=== PATIENT | female | born 1990 | race Caucasian/White ===

== ENCOUNTER → 2016-06-25 | Outpatient (CLI) | payer BC ==
[2016-06-25 13:45] LABS: ALBUMIN 2.7 GM/DL (3.2-5.2); ALBUMIN/GLOBULIN RATIO 0.82 (1.00-1.93); ALKALINE PHOSPHATASE 121 U/L (45-117); ALT/SGPT 18 U/L (12-78); ANION GAP 6 MEQ/L (8-16); AST/SGOT 11 U/L (15-37); BILIRUBIN,TOTAL 0.2 MG/DL (0.2-1.0); BLOOD UREA NITROGEN 10 MG/DL (7-18); CALCIUM LEVEL 8.3 MG/DL (8.5-10.1); CARBON DIOXIDE LEVEL 25 MEQ/L (21-32); CHLORIDE LEVEL 109 MEQ/L (98-107); CREATININE FOR GFR 0.71 MG/DL (0.55-1.02); FERRITIN 2 NG/ML (8-252); FREE T4 0.89 NG/DL (0.76-1.46); GLOMERULAR FILTRATION RATE > 60.0 (>60); GLUCOSE, FASTING 95 MG/DL (70-105); POTASSIUM SERUM 4.5 MEQ/L (3.5-5.1); SODIUM LEVEL 140 MEQ/L (136-145); TOTAL IRON BINDING CAPACITY 423 UG/DL (250-450)
[2016-06-25 13:46] LABS: BASO # 0.1 K/mm3 (0.0-0.2); BASO % 0.6 % (0.0-1.0); EOS % 10.9 % (0.0-3.0); LARGE UNSTAINED CELL # 0.1 K/mm3 (0.0-0.4); LARGE UNSTAINED CELL % 1.2 % (0.0-4.0); LYMPH # 1.5 K/mm3 (1.5-6.5); LYMPH % 16.2 % (24.0-44.0); MEAN CORPUSCULAR HEMOGLOBIN 21.7 pg (27.0-33.0); MEAN CORPUSCULAR VOLUME 70.2 fl (80.0-96.0); MONO # 0.5 K/mm3 (0.0-0.8); MONO % 5.1 % (0.0-5.0); NEUTROPHILS # 6.1 K/mm3 (1.8-7.7); PLATELET COUNT, AUTOMATED 377 k/mm3 (150-450); RED CELL DISTRIBUTION WIDTH 16.5 % (11.5-14.5); WHITE BLOOD COUNT 9.2 K/mm3 (4.0-10.0)
[2016-06-25 13:48] LABS: FOLATE 9.1 NG/ML; VITAMIN B12 LEVEL 393 PG/ML
[2016-06-25 14:05] LABS: ADD MORPHOLOGY? YES
[2016-06-25 14:13] LABS: ANISOCYTOSIS 1+; HYPOCHROMASIA 3+; MICROCYTOSIS 3+
[2016-06-25 14:47] LABS: ERYTHROCYTE SEDIMENTATION RATE 38 mm/hr (0-20)
== END ==
LOC: M SMT 08:11
PROVIDERS: ATTEND Family Medicine
DX: D50.9 Iron deficiency anemia, unspecified (principal); K50.80 Crohn's disease of both small and large intestine without complications; F33.1 Major depressive disorder, recurrent, moderate

== ENCOUNTER → 2016-06-25 | Outpatient (CLI) | payer BC ==
[2016-06-25 13:49] LABS: VITAMIN B12 LEVEL 391 PG/ML (247-911)
[2016-06-25 13:54] LABS: ALBUMIN 2.7 GM/DL (3.2-5.2); ANION GAP 7 MEQ/L (8-16); BLOOD UREA NITROGEN 10 MG/DL (7-18); CALCIUM LEVEL 8.2 MG/DL (8.5-10.1); CARBON DIOXIDE LEVEL 24 MEQ/L (21-32); CHLORIDE LEVEL 109 MEQ/L (98-107); CREATININE FOR GFR 0.73 MG/DL (0.55-1.02); FERRITIN 2 NG/ML (8-252); GLOMERULAR FILTRATION RATE > 60.0 (>60); GLUCOSE, FASTING 98 MG/DL (70-105); MAGNESIUM LEVEL 1.9 MG/DL (1.8-2.4); PERCENT SATURATION 4.9 % (13.2-37.4); PHOSPHORUS LEVEL 3.2 MG/DL (2.5-4.9); POTASSIUM SERUM 4.5 MEQ/L (3.5-5.1); SODIUM LEVEL 140 MEQ/L (136-145); TOTAL IRON BINDING CAPACITY 408 UG/DL (250-450)
== END ==
LOC: M SMT 08:14
PROVIDERS: ATTEND Internal Medicine Gastroenterology
DX: K50.80 Crohn's disease of both small and large intestine without complications (principal); K59.1 Functional diarrhea; D64.9 Anemia, unspecified; R14.1 Gas pain

== ENCOUNTER → 2016-07-15 | Outpatient (CLI) | payer BC ==
[2016-07-18 00:06] LABS: ENDOMYSIAL ABY IgA Negative (Negative); TISSUE TRANSGLUTAMINASE IgG <2 U/mL (0-5)
== END ==
LOC: M SMT 12:58
PROVIDERS: ATTEND Internal Medicine Gastroenterology
DX: R10.12 Left upper quadrant pain (principal); K21.9 Gastro-esophageal reflux disease without esophagitis; D64.9 Anemia, unspecified; K52.9 Noninfective gastroenteritis and colitis, unspecified

== ENCOUNTER → 2016-10-08 | Outpatient (CLI) | payer BC ==
[~2016-10-08] MED LIST: BCP; FLUO20CA8 PO; OMEP40CA2 PO; ROPI2TAB24 PO; TOPA50TA8 PO; VALI5TAB PO; VITA200038 PO; XYZA5TAB2 PO; [UNRECOGNIZED DRUG - CODE] XX
[2016-10-08 14:12] LABS: FOLLICLE STIMULATING HORMONE 4.5 mIU/mL; LUTEINIZING HORMONE 2.9 mIU/mL
[2016-10-08 14:24] LABS: ADD MANUAL DIFFER YES; MEAN CORPUSCULAR HEMOGLOBIN 22.2 pg (27.0-33.0); MEAN CORPUSCULAR HGB CONC 31.2 g/dl (32.0-36.5); PLATELET COUNT, AUTOMATED 336 k/mm3 (150-450); RED CELL DISTRIBUTION WIDTH 16.7 % (11.5-14.5)
[2016-10-08 14:48] LABS: PERCENT SATURATION 6.2 % (13.2-45.0)
[2016-10-08 14:51] LABS: BANDS 4 % (< 11); BASOPHILS 1 % (0-4); EOSINOPHILS 4 % (0-5)
[2016-10-08 14:52] LABS: ANISOCYTOSIS 2+; HYPOCHROMASIA 1+; MICROCYTOSIS 2+
== END ==
LOC: M SMT 10:21
PROVIDERS: ATTEND Family Medicine
DX: E55.9 Vitamin D deficiency, unspecified (principal); D50.9 Iron deficiency anemia, unspecified; R63.5 Abnormal weight gain

== ENCOUNTER 2016-10-15 18:23 | Emergency (ER) | payer OTHER, BC ==
[~2016-10-15] VITALS: Ht 170.2 cm; Wt 125.3 kg
[2016-10-15] MEDS ORDERED: FLUO20CA8 PO (18:35)
[2016-10-15] MEDS ORDERED: BCP (18:35)
[2016-10-15] MEDS ORDERED: [UNRECOGNIZED DRUG - CODE] XX (18:35)
[2016-10-15] MEDS ORDERED: TOPA50TA8 PO (18:35)
[2016-10-15] MEDS ORDERED: OMEP40CA2 PO (18:35)
[2016-10-15] MEDS ORDERED: XYZA5TAB2 PO (18:35)
[2016-10-15] MEDS ORDERED: ROPI2TAB24 PO (18:35)
[2016-10-15] MEDS ORDERED: VITA200038 PO (18:35)
[2016-10-15] MEDS ORDERED: ADACEL/BOOSTRIX VACCINE (DIPHTH/PERTUSS/ACELL/TETANUS)0.5ML SYR (90715) IM ONE (20:45)
--- NOTE | 2016-10-15 21:50 | REPUSA ---
HISTORY: Trauma. COMPARISON: No relevant comparison is available at the time of interpretation. CT C-SPINE with reformations: total DLP combined head and C-spine 1309.1 mGy*cm C1 through T1: Neural rings intact without fracture. Dens intact. Central canal: Patent without neural encroachment. Alignment (by reformations): No acute listhesis. IMPRESSION: Nontraumatic C-spine.
--- NOTE | 2016-10-15 21:50 | REPUSA ---
CLINICAL HISTORY: Head trauma COMPARISON: No study for comparison is available at the time of interpretation. TECHNIQUE: Head CT without contrast Brain: No intracranial hemorrhage or parenchymal edema. Calvarium: No depressed fractures. Sinuses (partially visualized): No hemorrhage fluid levels. IMPRESSION: No intracranial hemorrhage or fracture.
[2016-10-15] MEDS ORDERED: VALI5TAB PO (22:07)
[2016-10-15 22:14] VITALS: BP 138/80
--- NOTE | 2016-10-16 07:56 | REP ---
Left shoulder three views : There is no fracture or dislocation. Mineralization and joint spaces are normal. There are no calcifications or foreign bodies. Impression: Negative left shoulder . Signed by Brice Fajardo MD 10/16/2016 07:48 A
== END 2016-10-15 22:14 | disposition home or self-care (01) ==
LOC: M ED 18:23
DX: S13.4XXA Sprain of ligaments of cervical spine, initial encounter (principal); S40.012A Contusion of left shoulder, initial encounter; S06.0X0A Concussion without loss of consciousness, initial encounter; V53.5XXA Driver of pick-up truck or van injured in collision with car, pick-up truck or van in traffic accident, initial encounter; Y92.410 Unspecified street and highway as the place of occurrence of the external cause; J45.909 Unspecified asthma, uncomplicated; E66.9 Obesity, unspecified; Z88.2 Allergy status to sulfonamides; Z79.899 Other long term (current) drug therapy

== ENCOUNTER → 2017-04-11 | Outpatient (REF) | payer BC | LOC: M LAB REF 11:02 | DX: R19.7 Diarrhea, unspecified (principal) | CPT/HCPCS: 87507 ==

== ENCOUNTER → 2017-05-02 | Outpatient (REF) | payer BC | LOC: M LAB REF 09:47 | DX: A04.72 Enterocolitis due to Clostridium difficile, not specified as recurrent (principal) | CPT/HCPCS: 87507 ==

== ENCOUNTER → 2017-05-09 | Outpatient (CLI) | payer BC ==
[2017-05-09 13:40] LABS: BASO # 0.1 10^3/uL (0.0-0.2); EOS # 1.3 10^3/uL (0.0-0.50); EOS % 16.5 % (0.0-3.0); HEMATOCRIT 32.8 % (36.0-47.0); HEMOGLOBIN 9.7 g/dl (12.0-16.0); IMMATURE GRANULOCYTE % 0.1 % (0-3.0); LYMPH # 1.8 10^3/uL (1.5-6.5); LYMPH % 22.9 % (24.0-44.0); MEAN CORPUSCULAR HEMOGLOBIN 20.4 pg (27.0-33.0); MEAN CORPUSCULAR HGB CONC 29.6 g/dl (32.0-36.5); MEAN CORPUSCULAR VOLUME 69.1 fl (80.0-96.0); MONO # 0.6 10^3/uL (0.0-0.8); MONO % 7.7 % (0.0-5.0); NEUTROPHILS # 4.1 10^3/uL (1.8-7.7); NEUTROPHILS % 51.8 % (36.0-66.0); PLATELET COUNT, AUTOMATED 434 10^3/uL (150-450); RED BLOOD COUNT 4.75 10^6/uL (4.00-5.40); RED CELL DISTRIBUTION WIDTH 18.8 % (11.5-14.5); WHITE BLOOD COUNT 7.9 10^3/uL (4.0-10.0)
[2017-05-09 14:05] LABS: ALBUMIN 2.6 GM/DL (3.2-5.2); ALBUMIN/GLOBULIN RATIO 0.65 (1.00-1.93); ALKALINE PHOSPHATASE 103 U/L (45-117); ALT/SGPT 14 U/L (12-78); ANION GAP 8 MEQ/L (8-16); AST/SGOT 7 U/L (7-37); BILIRUBIN,TOTAL 0.3 MG/DL (0.2-1.0); BLOOD UREA NITROGEN 9 MG/DL (7-18); CALCIUM LEVEL 8.6 MG/DL (8.5-10.1); CARBON DIOXIDE LEVEL 26 MEQ/L (21-32); CHLORIDE LEVEL 106 MEQ/L (98-107); FERRITIN 2 NG/ML (8-252); GLOMERULAR FILTRATION RATE > 60.0 (>60); GLUCOSE, FASTING 89 MG/DL (70-100); IRON (FE) 30 UG/DL (50-170); PERCENT SATURATION 6.6 % (13.2-45.0); POTASSIUM SERUM 4.5 MEQ/L (3.5-5.1); SODIUM LEVEL 140 MEQ/L (136-145); TOTAL IRON BINDING CAPACITY 456 UG/DL (250-450); TOTAL PROTEIN 6.6 GM/DL (6.4-8.2)
== END ==
LOC: M SMT 09:07
DX: D50.9 Iron deficiency anemia, unspecified (principal); K50.80 Crohn's disease of both small and large intestine without complications
CPT/HCPCS: 83550

== ENCOUNTER 2018-01-24 09:54 | Inpatient (IN) | payer BC ==
[2018-01-24] MEDS: NS 1,000 ML IV ×2 (11:04→17:40)
[2018-01-24 11:07] LABS: BASO # 0.1 10^3/uL (0.0-0.2); BASO % 0.9 % (0.0-1.0); EOS # 0.6 10^3/uL (0.0-0.50); EOS % 7.5 % (0.0-3.0); HEMATOCRIT 27.6 % (36.0-47.0); HEMOGLOBIN 7.7 g/dl (12.0-15.5); IMMATURE GRANULOCYTE % 0.2 % (0-3.0); LYMPH # 1.6 10^3/uL (1.5-6.5); MEAN CORPUSCULAR HGB CONC 27.9 g/dl (32.0-36.5); MEAN CORPUSCULAR VOLUME 64.5 fl (80.0-96.0); MONO # 0.5 10^3/uL (0.0-0.8); MONO % 6.7 % (0.0-5.0); NEUTROPHILS # 5.3 10^3/uL (1.8-7.7); NEUTROPHILS % 64.7 % (36.0-66.0); PLATELET COUNT, AUTOMATED 464 10^3/uL (150-450); RED BLOOD COUNT 4.28 10^6/uL (4.00-5.40); RED CELL DISTRIBUTION WIDTH 18.4 % (11.5-14.5); WHITE BLOOD COUNT 8.1 10^3/uL (4.0-10.0)
[2018-01-24 11:10] LABS: INR 0.97
[2018-01-24 11:11] LABS: PARTIAL THROMBOPLASTIN TIME 27.9 SECONDS (25.4-37.6)
[2018-01-24 11:15] LABS: ALBUMIN 2.3 GM/DL (3.2-5.2); ALBUMIN/GLOBULIN RATIO 0.45 (1.00-1.93); ALKALINE PHOSPHATASE 112 U/L (45-117); ALT/SGPT 14 U/L (12-78); ANION GAP 9 MEQ/L (8-16); AST/SGOT 11 U/L (7-37); BILIRUBIN,TOTAL 0.2 MG/DL (0.2-1.0); BLOOD UREA NITROGEN 5 MG/DL (7-18); CALCIUM LEVEL 8.5 MG/DL (8.5-10.1); CARBON DIOXIDE LEVEL 24 MEQ/L (21-32); CHLORIDE LEVEL 108 MEQ/L (98-107); CREATININE FOR GFR 0.86 MG/DL (0.55-1.30); GLOMERULAR FILTRATION RATE > 60.0 (>60); GLUCOSE, FASTING 97 MG/DL (70-100); LIPASE 92 U/L (73-393); POTASSIUM SERUM 3.9 MEQ/L (3.5-5.1); SODIUM LEVEL 141 MEQ/L (136-145); TOTAL PROTEIN 7.4 GM/DL (6.4-8.2)
[2018-01-24 11:17] LABS: APPEARANCE, URINE HAZY (CLEAR); BACTERIA, URINE AUTO NEGATIVE (NEGATIVE); BILIRUBIN, URINE AUTO NEGATIVE (NEGATIVE); BLOOD, URINE BLOOD 3+ (NEGATIVE); CALCIUM OXALATE CRYSTALS SMALL; COLOR, URINE AMBER (YELLOW); GLUCOSE, URINE (UA) AUTO NEGATIVE (NEGATIVE); KETONE, URINE AUTO NEGATIVE (NEGATIVE); LEUKOCYTE ESTERASE, URINE AUTO TRACE (NEGATIVE); MUCUS, URINE SMALL (NEGATIVE); NITRITE, URINE AUTO NEGATIVE (NEGATIVE); PROTEIN, URINE AUTO 1+ mg/dL (NEGATIVE); RBC, URINE AUTO 53 /HPF (0-3); SPECIFIC GRAVITY URINE AUTO 1.027 (1.002-1.035); SQUAMOUS EPITHELIAL CELL UR AU 1 /HPF (0-6); WBC, URINE AUTO 15 /HPF (0-3)
[2018-01-24 11:29] LABS: ERYTHROCYTE SEDIMENTATION RATE 82 mm/hr (0-20)
[2018-01-24] MEDS: MORPHINE 2 MG/ML 1ML SYRINGE (J2270) IV (11:50)
[2018-01-24] MEDS: GASTROGRAFIN SOLUTION 30ML PO ×2 (11:50→12:12)
[2018-01-24] MEDS: methylPREDNISolone INJ 125 MG/2 ML VIAL (J2930) IV (11:52)
[2018-01-24] MEDS ORDERED: ISOVUE-370 76% 100ML VIAL (Q9967) As Ordered (11:54)
[2018-01-24] MEDS ORDERED: ACETAMINOPHEN TAB 650MG DOSE (2X325MG) PO (15:15)
[2018-01-24] MEDS ORDERED: ONDANSETRON 4MG/2ML VIAL (J2405) IV (15:15)
[2018-01-24] MEDS: PANTOPRAZOLE 40MG TAB (PROTONIX) PO (17:40)
[2018-01-25 00:33] LABS: HEMATOCRIT 26.5 % (36.0-47.0); HEMOGLOBIN 7.3 g/dl (12.0-15.5)
[2018-01-25] MEDS: NS 1,000 ML IV (03:19)
[2018-01-25 07:39] LABS: HEMATOCRIT 25.7 % (36.0-47.0); HEMOGLOBIN 7.1 g/dl (12.0-15.5)
[2018-01-25 08:05] LABS: ANION GAP 5 MEQ/L (8-16); BLOOD UREA NITROGEN 4 MG/DL (7-18); CALCIUM LEVEL 8.4 MG/DL (8.5-10.1); CARBON DIOXIDE LEVEL 27 MEQ/L (21-32); CHLORIDE LEVEL 112 MEQ/L (98-107); CREATININE FOR GFR 0.64 MG/DL (0.55-1.30); GLOMERULAR FILTRATION RATE > 60.0 (>60); GLUCOSE, FASTING 106 MG/DL (70-100); POTASSIUM SERUM 3.9 MEQ/L (3.5-5.1); SODIUM LEVEL 144 MEQ/L (136-145)
[2018-01-25 09:12] LABS: FERRITIN 3 NG/ML (8-252); IRON (FE) 15 UG/DL (50-170); PERCENT SATURATION 4.2 % (13.2-45.0); TOTAL IRON BINDING CAPACITY 360 UG/DL (250-450)
[2018-01-25] MEDS: predniSONE 20 MG TAB PO (09:24)
[2018-01-25] MEDS: PANTOPRAZOLE 40MG TAB (PROTONIX) PO (09:24)
[2018-01-25 12:25] LABS: IMMEDIATE SPIN CROSSMATCH 1 2
[2018-01-26 10:30] LABS: VITAMIN B12 LEVEL 409 PG/ML (247-911)
[2018-01-26 10:31] LABS: FOLATE 6.4 NG/ML (>5.4)
== END 2018-01-25 15:05 | disposition home or self-care (01) | DRG 245 ==
LOC: M ED 09:54 → M ED INP 15:15 → M PED 16:50
PROC: 30233N1 Transfusion of Nonautologous Red Blood Cells into Peripheral Vein, Percutaneous Approach (ICD-10-PCS; principal; 2018-01-24)
DX: K50.811 Crohn's disease of both small and large intestine with rectal bleeding (principal); D62 Acute posthemorrhagic anemia; D50.9 Iron deficiency anemia, unspecified; J45.909 Unspecified asthma, uncomplicated; Z79.899 Other long term (current) drug therapy; Z88.2 Allergy status to sulfonamides

== ENCOUNTER → 2018-02-06 | Outpatient (CLI) | payer BC ==
[2018-02-06 11:00] LABS: HEMATOCRIT 31.3 % (36.0-47.0); HEMOGLOBIN 9.1 g/dl (12.0-15.5); MEAN CORPUSCULAR HEMOGLOBIN 19.7 pg (27.0-33.0); MEAN CORPUSCULAR HGB CONC 29.1 g/dl (32.0-36.5); MEAN CORPUSCULAR VOLUME 67.7 fl (80.0-96.0); PLATELET COUNT, AUTOMATED 557 10^3/uL (150-450); RED BLOOD COUNT 4.62 10^6/uL (4.00-5.40); RED CELL DISTRIBUTION WIDTH 22.9 % (11.5-14.5); WHITE BLOOD COUNT 12.4 10^3/uL (4.0-10.0)
[2018-02-06 11:26] LABS: ALBUMIN 2.5 GM/DL (3.2-5.2); ALBUMIN/GLOBULIN RATIO 0.53 (1.00-1.93); ALKALINE PHOSPHATASE 165 U/L (45-117); ALT/SGPT 23 U/L (12-78); ANION GAP 8 MEQ/L (8-16); AST/SGOT 13 U/L (7-37); BILIRUBIN,TOTAL 0.6 MG/DL (0.2-1.0); BLOOD UREA NITROGEN 8 MG/DL (7-18); CALCIUM LEVEL 9.3 MG/DL (8.5-10.1); CARBON DIOXIDE LEVEL 26 MEQ/L (21-32); CHLORIDE LEVEL 103 MEQ/L (98-107); CREATININE FOR GFR 0.78 MG/DL (0.55-1.30); FERRITIN 22 NG/ML (8-252); GLOMERULAR FILTRATION RATE > 60.0 (>60); GLUCOSE, FASTING 92 MG/DL (70-100); IRON (FE) 24 UG/DL (50-170); PERCENT SATURATION 7.1 % (13.2-45.0); POTASSIUM SERUM 4.3 MEQ/L (3.5-5.1); SODIUM LEVEL 137 MEQ/L (136-145); TOTAL IRON BINDING CAPACITY 340 UG/DL (250-450); TOTAL PROTEIN 7.2 GM/DL (6.4-8.2)
[2018-02-06 11:51] LABS: TOTAL 25(OH) VITAMIN D 14.4 NG/ML (30.0-100.0)
== END ==
LOC: M LAB 10:02
DX: K50.80 Crohn's disease of both small and large intestine without complications (principal); R10.31 Right lower quadrant pain; K92.1 Melena
CPT/HCPCS: 83550

== ENCOUNTER 2018-02-26 15:27 | Inpatient (IN) | payer BC ==
[~2018-02-26] VITALS: Ht 170.2 cm; Wt 110.4 kg
[~2018-02-26 15:27] MED LIST changes: +HUMI40KI2 SC; +LORA-243 PO; +XULA1DIS TD
[2018-02-26] MEDS ORDERED: MESA1.2T PO (15:37)
[2018-02-26] MEDS ORDERED: METR1TAB66 PO (15:37)
[2018-02-26] MEDS ORDERED: BUDE3CAP PO (15:38)
[2018-02-26] MEDS ORDERED: VANCOMYCIN ORAL SOL 250MG/5ML ORAL SYRINGE PO STA (15:56)
[2018-02-26] MEDS ORDERED: NS IV ONE (16:00)
[2018-02-26] MEDS ORDERED: DILUENT IV ONE (16:00)
[2018-02-26] MEDS ORDERED: ACETAMINOPHEN 325 MG TAB PO ONE (16:15)
[2018-02-26 16:17] LABS: BASO % 0.2 % (0.0-1.0); EOS % 0.1 % (0.0-3.0); HEMATOCRIT 32.7 % (36.0-47.0); HEMOGLOBIN 9.7 g/dl (12.0-15.5); LYMPH % 6.6 % (24.0-44.0); MEAN CORPUSCULAR HEMOGLOBIN 19.9 pg (27.0-33.0); MEAN CORPUSCULAR HGB CONC 29.7 g/dl (32.0-36.5); MEAN CORPUSCULAR VOLUME 67.1 fl (80.0-96.0); MONO % 6.5 % (0.0-5.0); NEUTROPHILS # 12.6 10^3/uL (1.8-7.7); NEUTROPHILS % 86.1 % (36.0-66.0); PLATELET COUNT, AUTOMATED 612 10^3/uL (150-450); RED BLOOD COUNT 4.87 10^6/uL (4.00-5.40); WHITE BLOOD COUNT 14.6 10^3/uL (4.0-10.0)
[2018-02-26] MEDS ORDERED: ACET-683 PO (16:32)
[2018-02-26] MEDS ORDERED: TYLE1TAB5 PO (16:32)
[2018-02-26 16:34] LABS: INR 1.48; PROTHROMBIN TIME 18.2 SECONDS (12.1-14.4)
[2018-02-26] MEDS ORDERED: DRIS50003 PO (16:34)
[2018-02-26] MEDS ORDERED: VENTAER INH (16:34)
[2018-02-26 16:51] LABS: HCG, SERUM QUALITATIVE NEGATIVE (NEGATIVE)
[2018-02-26 16:56] LABS: ALBUMIN 2.5 GM/DL (3.2-5.2); ALT/SGPT 13 U/L (12-78); BILIRUBIN,DIRECT 0.1 MG/DL (0.0-0.2); BILIRUBIN,TOTAL 0.4 MG/DL (0.2-1.0); BLOOD UREA NITROGEN 7 MG/DL (7-18); CALCIUM LEVEL 8.6 MG/DL (8.5-10.1); CARBON DIOXIDE LEVEL 25 MEQ/L (21-32); CHLORIDE LEVEL 99 MEQ/L (98-107); CREATININE FOR GFR 0.81 MG/DL (0.55-1.30); GLOMERULAR FILTRATION RATE > 60.0 (>60); GLUCOSE, FASTING 105 MG/DL (70-100); LIPASE 305 U/L (73-393); POTASSIUM SERUM 3.6 MEQ/L (3.5-5.1); SODIUM LEVEL 136 MEQ/L (136-145); TOTAL PROTEIN 7.4 GM/DL (6.4-8.2)
[2018-02-26] MEDS ORDERED: DICYCLOMINE INJ 20MG/2ML (J0500) IM ONE (17:00)
[2018-02-26] MEDS ORDERED: METOCLOPRAMIDE INJ 10MG/2ML VIAL (J2765) IV ONE (17:00)
[2018-02-26] MEDS ORDERED: ISOVUE-370 76% 100ML VIAL (Q9967) As Ordered ONE (17:08)
[2018-02-26] MEDS ORDERED: PIPERACILLIN/TAZOBACTAM SOD 4.5 GM in D5W MINI-BAG PLUS 50 ML IV ONE (18:00)
--- NOTE | 2018-02-26 18:02 | REP ---
CT abdomen and pelvis with IV but without oral contrast: History: Abdomen pain and fever. History of Crohn disease. Comparison CT study January 24, 2018. CT contrast dose: 100 ml of intravenous Isovue [address] findings: Digital preliminary release of information specialist radiograph is unremarkable. The lung bases are clear on axial CT images. The liver and spleen are mildly enlarged but homogeneous in texture. Spleen measures 14.2 cm in greatest dimension. The liver has an 18.7 cm craniocaudal span in the midclavicular line. No focal hepatic or splenic lesion is seen. Liver and spleen are unchanged in size. No pancreatic abnormalities observed. No adrenal lesion is seen. Gallbladder is unremarkable by CT. The kidneys enhance symmetrically and are morphologically intact. No retroperitoneal mass or adenopathy is observed. There are extensive inflammatory changes in right lower quadrant with a large low-density abscess cavity in the right lower quadrant posterior to the cecum and anterior and within the right psoas muscle. This abscess cavity measures up to 7.8 cm medial to lateral by 6.5 cm anterior to posterior by 9.6 cm in craniocaudal span. The abscess and associated phlegmonous reaction appear to be centered at the tip of the cecum and at the level of the distal ileum. There are several bubbles of uncontained gas in and adjacent to this cavity. There are a few reactive regional lymph nodes noted. There is a small quantity of ascitic fluid in the cul-de-sac. No uterine or ovarian abnormality is seen. There is no evidence of bowel obstruction. No free intraperitoneal air is seen. Impression: Large, 9.6 cm, right lower quadrant abscess posterior and medial to the cecal tip at the level of the distal ileum and extending into the right iliopsoas muscle. The appendix is not separately identifiable. Findings are compatible with abscess related to Crohn disease versus appendicitis. There are some reactive lymph nodes and a few uncontained air bubbles. No free intraperitoneal air is seen. CT guided percutaneous drainage appears to be feasible with an approach posterior to the ascending colon. Electronically Signed by Adria Magallanes MD 02/26/2018 06:27 P
[2018-02-26] MEDS ORDERED: KETOROLAC 30 MG/ML VIAL (J1885) IV ONE (18:30)
[2018-02-26] MEDS ORDERED: NORCO, ANEXSIA 5/325MG TABLET (HYDROcodone/ACETAMINOPHEN) PO PRN (19:30)
[2018-02-26] MEDS ORDERED: MORPHINE 4 MG/ML 1ML VIAL/SYRINGE (J2270) IV PRN (19:30)
[2018-02-26] MEDS ORDERED: ALBUTEROL 90 MCG/ACT 8GM HFA INHALER INH PRN (19:30)
[2018-02-26] MEDS ORDERED: ONDANSETRON 4MG/2ML VIAL (J2405) IV PRN (19:30)
[2018-02-26 20:51] VITALS: BP 126/64
[2018-02-26] MEDS: LR 1,000 ML IV SCH (21:06)
[2018-02-27] VITALS (7 sets, daily range): BP systolic 114–136; BP diastolic 58–82
[2018-02-27] MEDS: PIPERACILLIN/TAZOBACTAM SOD 3.375 GM in D5W MINI-BAG PLUS 50 ML IV SCH ×4 (01:38→19:00)
[2018-02-27] MEDS: ACETAMINOPHEN TAB 650MG DOSE (2X325MG) PO PRN ×4 (01:48→19:02)
[2018-02-27] MEDS: LR 1,000 ML IV SCH (06:14)
[2018-02-27 07:25] LABS: BASO # 0.1 10^3/uL (0.0-0.2); BASO % 0.4 % (0.0-1.0); EOS % 0.1 % (0.0-3.0); HEMATOCRIT 26.3 % (36.0-47.0); HEMOGLOBIN 7.8 g/dl (12.0-15.5); LYMPH # 1.4 10^3/uL (1.5-6.5); LYMPH % 10.1 % (24.0-44.0); MEAN CORPUSCULAR HEMOGLOBIN 19.9 pg (27.0-33.0); MEAN CORPUSCULAR HGB CONC 29.7 g/dl (32.0-36.5); MEAN CORPUSCULAR VOLUME 67.1 fl (80.0-96.0); MONO # 1.4 10^3/uL (0.0-0.8); MONO % 10.6 % (0.0-5.0); NEUTROPHILS # 10.6 10^3/uL (1.8-7.7); NEUTROPHILS % 78.3 % (36.0-66.0); RED BLOOD COUNT 3.92 10^6/uL (4.00-5.40); WHITE BLOOD COUNT 13.5 10^3/uL (4.0-10.0)
[2018-02-27 07:44] LABS: PLATELET COUNT, AUTOMATED 436 10^3/uL (150-450)
[2018-02-27 08:04] LABS: BLOOD UREA NITROGEN 4 MG/DL (7-18); CALCIUM LEVEL 8.3 MG/DL (8.5-10.1); CARBON DIOXIDE LEVEL 22 MEQ/L (21-32); CHLORIDE LEVEL 104 MEQ/L (98-107); CREATININE FOR GFR 0.64 MG/DL (0.55-1.30); GLOMERULAR FILTRATION RATE > 60.0 (>60); GLUCOSE, FASTING 93 MG/DL (70-100); POTASSIUM SERUM 2.9 MEQ/L (3.5-5.1); SODIUM LEVEL 138 MEQ/L (136-145)
[2018-02-27] MEDS: BUDESONIDE EC 3 MG CAP (ENTOCORT EC) PO SCH (10:54)
[2018-02-27] MEDS: POTASSIUM CHLORIDE 10 MEQ SR TABLET PO SCH ×2 (10:55→15:51)
--- NOTE | 2018-02-27 11:19 | ECGEPIP ---
Stationary ECG Study [facility] - ED Test Date: 2018-02-26 Pat Name: VICENTE MORENO Department: Room: - Gender: F Bee Raiser: ad : 1990 Requested By: Ella Acosta Order Number: [id number] Reading MD: Paul Acosta Measurements Intervals [place] Rate: 114 P: 38 MS: 130 QRS: 14 QRSD: 81 T: 10 QT: 319 QTc: 440 Interpretive Statements SINUS TACHYCARDIA POSSIBLE LEFT ATRIAL ENLARGEMENT NONSPECIFIC T-WAVE ABNORMALITY NO PRIORS FOR COMPARISON Electronically Signed On 02-27-2018 11:19:23 EST by Paul Acosta
[2018-02-27] MEDS ORDERED: LIDOCAINE 1% MDV 20ML VIAL As Ordered ONE (12:23)
--- NOTE | 2018-02-27 18:07 | HPE ---
DATE OF ADMISSION: 02/26/2018 ADMISSION DIAGNOSIS: Large right lower quadrant retroperitoneal abscess, likely secondary to Crohn's disease. HISTORY OF PRESENT ILLNESS: The patient is a very pleasant 27-year-old woman who reports that she was diagnosed with Crohn's disease in about 2010 when she was living in [place]. She reports that this has apparently affected primarily her terminal ileum. She reports having had some ulcers noted in her upper gastrointestinal (GI) tract as well. She was apparently initially treated with Remicade, but this subsequently became less effective. She was converted to Humira for treatment, which she continued for several years but then discontinued when her symptoms were well controlled. She has fairly recently been placed back on Humira. She has seen Dr. Lesley Atkinson in [place] for management of her Crohn's disease. The patient also reports a history of Clostridium difficile colitis previously when treated with antibiotics for her Crohn's disease. The patient reports that on about January 02, 2018, she noted some right-sided gas pains. She reports that she has not been eating well. She has felt full with some discomfort. On January 24, 2018, she was seen at [facility] for her abdominal pain. She had reported some blood in her stool and was placed into the hospital when she was found to be quite anemic. She received 2 units of packed red blood cells during that hospitalization. A CT scan of the abdomen and pelvis at that time had revealed mucosal thickening with pericolonic inflammatory stranding involving the cecum and proximal ascending colon and terminal ileum. At that time, the appendix was reported as identified and relatively normal. After discharge, she was followed up by Dr. Castaneda and also saw Dr. Atkinson. She was having some diarrhea, and there were concerns that she may have reactivated her Clostridium difficile and she was started on some Flagyl. She has continued her Humira, with her most recent shot on February 25, 2018. Because of continuing discomfort, which has worsened, as well as the onset of fevers, she presented to the emergency department for evaluation. She reports that she has lost 42 pounds in the last month because of her reduced dietary intake. She has pain in the right lower quadrant that radiates to her right hip and right back. In the emergency department, she underwent a CT scan that showed a large abscess adjacent to and posterior to the cecum and terminal ileum. This was maximally 9 cm in diameter. There was no evidence of any free air within the abdomen and only a minimal amount of free fluid in the pelvis. She is now admitted for management of her large abscess. MEDICATIONS: The patient's current medications include Tylenol 1000 mg every 6 hours as needed for pain and albuterol inhaler as needed for shortness of breath, budesonide 3 mg capsules, three capsules by mouth daily, Humira 40 mg subcu weekly, mesalamine 2.4 grams p.o. at bedtime daily, Flagyl 500 mg by mouth three times daily, Tylenol PM extra strength as needed for sleep, vitamin D 50,000 units by mouth every week and Xulane 150/35 micrograms one patch applied to the deltoid area 3 weeks on and one off. ALLERGIES: Reported to CAT DANDER and DUST MITE EXTRACT, as well as SULFA ANTIBIOTICS. MEDICAL HISTORY: Significant for her Crohn's disease. She reports that she has not had a scope probably in a year or two. She does report that the primary area of activity has been her terminal ileum. She reports longstanding anemia, which she indicates has been related to her Crohn's disease. She also reports a history of asthma for which she will use an occasional inhaler. SOCIAL HISTORY: The patient does not smoke and denies any significant alcohol intake. FAMILY HISTORY: The patient's father apparently has hypertension, and the mother has a history of asthma and chronic obstructive pulmonary disease (COPD). REVIEW OF SYSTEMS: The patient denies any chest pain or palpitations. She has had no cough or wheezing or sputum production. She denies any dysuria or hematuria. She has been taking primarily some liquids recently as she has not been taking much in the way of food. She denies any significant bone or joint issues. There is no history of neurologic problems. She denies any history of thyroid issues or diabetes. PHYSICAL EXAM: Reveals a very pleasant woman lying quietly on the ER stretcher. Her temperature on presentation was 103.1 degrees with a pulse of 140, though her most recent vitals show a temperature of 98.3 with a pulse of 97. She reports a height of 5 feet 7 inches with a weight of 106 kg. She appears somewhat pale. She is alert, oriented and cooperative. Sclerae are anicteric. Mucous membranes appear moist. The neck is supple without mass. Heart exam shows a regular rhythm. Lungs are clear to auscultation. The abdomen is somewhat obese. She has active bowel sounds. The abdomen is soft. She has some mild to moderate direct tenderness in the right lower quadrant and at the level of the umbilicus laterally. There is no evident abdominal hernia. Extremities reveal palpable radial and dorsalis pedis pulses. Her laboratory studies show a white count of 14.6 with a hemoglobin of 10, hematocrit of 33 and a platelet count of 612,000. Differential count shows 86% neutrophils, 7% lymphocytes and 6% monocytes. She had a PT of 18.2 with an INR of 1.48. Chemistry profile showed a sodium of 136, potassium 3.6, chloride 99, CO2 of 25, BUN of 7, creatinine of 0.8 and a glucose of 105. Her liver function tests were normal with a total protein of 7.4 and albumin of 2.5. An hCG was negative, and her lipase was 305. Lactic acid was 1.5. CT scan imaging I reviewed personally. She has a large abscess in the right lower quadrant. This is adjacent to and posterior to the cecum and the terminal ileum. The appendix I do not see clearly on the current images. There is no evidence of free air or other acute finding. IMPRESSION: 1. Right lower quadrant abscess. 2. History of terminal ileal Crohn's disease. 3. Chronic anemia. 4. History of Clostridium difficile. 5. Asthma. PLAN: The patient is being admitted for management of her acute abscess. She has received a dose of piperacillin tazobactam in the emergency department. I will plan a CT-guided abscess drainage in the morning. She will be kept nothing by mouth tonight after midnight, but will be allowed some clear liquids until then. She will be kept on some maintenance IV fluid. She will be provided with analgesics and antipyretics as needed. We will recheck her laboratory studies in the morning. Once the abscess has been drained, we should expect better and more effective response to her antibiotics. It is likely I think that this abscess is the result of her Crohn's disease, though I do not think we can be 100% certain that this is not related to appendicitis. The treatment would be the same in either case. It sounds as if her poor oral intake and abdominal discomfort is likely related to her Crohn's disease with some degree of narrowing or stricture in her terminal ileum. Once the acute infection has been addressed, then further evaluation regarding the need for further intervention for her Crohn's disease will be needed. She did have a dose of Humira on the . I will continue her budesonide for now but not start other medications for her Crohn's. MTDD
--- NOTE | 2018-02-27 18:38 | REP ---
CT GUIDED DRAINAGE OF RIGHT RETROPERITONEAL ABSCESS: The patient was referred for CT guided drainage of right retroperitoneal abscess collection identified on CT of 02/26/2018. Informed consent was obtained for the procedure. With the patient in the left lateral decubitus position the abscess collection was localized with CT imaging. Under sterile conditions and after satisfactory administration of local anesthesia down to the peritoneal surface, an #8-Azeri skater pigtail drainage catheter was inserted into the fluid collection. A pigtail was formed and locked in place. Approximately 195 mL of brownish thick fluid was aspirated and sent for culture and sensitivity and gram stain. The catheter was sutured at the skin entrance site. It was attached to a drainage bag. Hemostasis was obtained and there were no immediate complications. Electronically Signed by Brice Garcia MD 03/05/2018 11:17 P
[2018-02-28] VITALS (7 sets, daily range): BP systolic 111–128; BP diastolic 58–80
[2018-02-28] MEDS ORDERED: diphenhydrAMINE 25 MG CAP PO ONE
[2018-02-28] MEDS: PIPERACILLIN/TAZOBACTAM SOD 3.375 GM in D5W MINI-BAG PLUS 50 ML IV SCH ×4 (00:10→18:32)
[2018-02-28 06:53] LABS: BASO % 0.5 % (0.0-1.0); EOS # 0.1 10^3/uL (0.0-0.50); HEMATOCRIT 25.6 % (36.0-47.0); HEMOGLOBIN 7.5 g/dl (12.0-15.5); LYMPH # 2.1 10^3/uL (1.5-6.5); LYMPH % 33.5 % (24.0-44.0); MEAN CORPUSCULAR HEMOGLOBIN 19.7 pg (27.0-33.0); MEAN CORPUSCULAR HGB CONC 29.3 g/dl (32.0-36.5); MEAN CORPUSCULAR VOLUME 67.2 fl (80.0-96.0); MONO # 0.7 10^3/uL (0.0-0.8); MONO % 10.7 % (0.0-5.0); NEUTROPHILS # 3.4 10^3/uL (1.8-7.7); NEUTROPHILS % 53.8 % (36.0-66.0); PLATELET COUNT, AUTOMATED 455 10^3/uL (150-450); RED BLOOD COUNT 3.81 10^6/uL (4.00-5.40); WHITE BLOOD COUNT 6.3 10^3/uL (4.0-10.0)
[2018-02-28 07:11] LABS: BLOOD UREA NITROGEN 5 MG/DL (7-18); CALCIUM LEVEL 8.6 MG/DL (8.5-10.1); CARBON DIOXIDE LEVEL 25 MEQ/L (21-32); CHLORIDE LEVEL 106 MEQ/L (98-107); CREATININE FOR GFR 0.65 MG/DL (0.55-1.30); GLOMERULAR FILTRATION RATE > 60.0 (>60); GLUCOSE, FASTING 89 MG/DL (70-100); POTASSIUM SERUM 3.2 MEQ/L (3.5-5.1); SODIUM LEVEL 141 MEQ/L (136-145)
[2018-02-28] MEDS: BUDESONIDE EC 3 MG CAP (ENTOCORT EC) PO SCH (08:40)
--- NOTE | 2018-02-28 09:51 | IPN ---
DATE: 02/27/2018 HISTORY: The patient was admitted last night with a large right lower quadrant retroperitoneal abscess, likely related to her Crohn's disease. She remained febrile overnight up to 103.9 degrees, though she was lower this morning. She recently returned to the floor from a imaging guided drain placement. The note indicates that 195 mL of fluid were returned on placement and fluid was sent for Gram stain and culture and sensitivity. Gram stain showed many white cells with many gram-positive cocci in chains. Vital signs: Her most recent temperature before the drain placement was 100.4. Pulse is 107, respirations 20 and blood pressure 122/62. Intake and output: The patient has voided several times today. PHYSICAL EXAMINATION: Physical exam shows that the abdomen remains obese. The drain is in the right lower lateral abdomen with only a small amount of pink fluid in the tubing at this time. Laboratory studies show that this morning her white blood cell count was 14 with a hemoglobin of 8, hematocrit 26 and a platelet count of 436,000. Her differential count was slightly improved at 78% neutrophils, 10% lymphocytes and 11% monocytes. IMPRESSION: The patient has now had her abscess drained. She appears fairly comfortable at present. I would anticipate watching her defervesce. PLAN: The patient will be allowed to resume a diet. She has not been taking much but some liquids but I will put her on a regular diet so she can pick and choose. We will follow her drain output. Continue the Zosyn. We can cut back her IV fluid when she is tolerating liquids well. CRISTEL
--- NOTE | 2018-02-28 12:16 | IPNPDOC ---
Text Note Date of Service The patient was seen on 02/28/18. NOTE No acute events overnight. Her abd pain is improved after the drainage, and she has not had any fevers since last night. Denies nausea, emesis, fevers, or pains. She had 2 BMs, and is ambulating without difficulty. She also had a good ight rest with the Benadryl last evening. No complaints of weakness, or dizziness with movement. VSSAF currently, Tmax 100.6 last night UOP - 150 drain - 50 BM - 2 NAD abd - soft, nt, nd, drain in the RLQ with some purulent drainage labs - below wbc - 13.5>6.3 A) 27y/o female with exacerbation of crohns disease with a RLQ abscess s/p drainage asymptomatic chronic anemia P) reg diet replace electrolytes ambulate monitor drain output plan on dc home with PO antibiotics once afebrile likely friday Brandon Jansen DO VS,Fishbone, I+O VS, Fishbone, I+O Laboratory Tests 02/28/18 06:34 Red Blood Count 3.81 L, Mean Corpuscular Volume 67.2 L, Mean Corpuscular Hemoglobin 19.7 L, Mean Corpuscular Hemoglobin Concent 29.3 L, Red Cell Distribution Width 22.0 H, Neutrophils (%) (Auto) 53.8, Lymphocytes (%) (Auto) 33.5, Monocytes (%) (Auto) 10.7 H, Eosinophils (%) (Auto) 1.0, Basophils (%) (Auto) 0.5, Neutrophils # (Auto) 3.4, Lymphocytes # (Auto) 2.1, Monocytes # (Auto) 0.7, Eosinophils # (Auto) 0.1, Basophils # (Auto) 0.0, Calcium Level 8.6 Vital Signs Date Time Temp Pulse Resp B/P (MAP) Pulse Ox O2 Delivery O2 Flow Rate FiO2 02/28/18 10:00 96.4 93 18 124/80 (95) 98 Room Air I&O- Last 24 Hours up to 6 AM 02/28/18 06:00 Intake Total 2430 ml Output Total 200 ml Balance 2230 ml PAUL JANSEN DO Feb 28, 2018 12:16
[2018-02-28] MEDS: POTASSIUM CHLORIDE 10 MEQ SR TABLET PO SCH (12:30)
[2018-02-28] MEDS ORDERED: NS 1,000 ML IV ONE (13:15)
[2018-02-28] MEDS: ACETAMINOPHEN TAB 650MG DOSE (2X325MG) PO PRN (13:16)
[2018-02-28] MEDS: NS 1,000 ML IV SCH (13:43)
--- NOTE | 2018-02-28 15:09 | REP ---
Clinical: Chest pain/pressure . Comparison: None . Findings: The mediastinum and cardiac silhouette are stable and within normal limits for portable technique. The lung iverson are clear without acute consolidation, effusion, or pneumothorax. Skeletal structures are intact. Impression: No acute cardiopulmonary process appreciated. Electronically Signed by Narayan Talavera MD 02/28/2018 03:00 P
--- NOTE | 2018-02-28 15:21 | ECGEPIP ---
Stationary ECG Study [facility] Test Date: 2018-02-28 Pat Name: VICENTE MORENO Department: Room: [place] [address] Gender: F Santa'S Helper: IRA : 1990 Requested By: PAUL Brink Order Number: [id number] Reading MD: Ada Gilbert Measurements Intervals [place] Rate: 78 P: 34 VA: 174 QRS: 41 QRSD: 86 T: 20 QT: 400 QTc: 457 Interpretive Statements SINUS RHYTHM NSSTW ABN RATE SLOWER C/W 02/26/18 Electronically Signed On 02-28-2018 15:21:13 EST by Ada Gilbert
--- NOTE | 2018-02-28 17:30 | CR ---
DATE OF CONSULTATION: 02/28/2018 This is a 27-year-old female with a past medical history of Crohn's disease who presented to the emergency room with abdominal pain and fevers. Was found to have right lower quadrant abscess, which was drained by surgery. The reason for medical consultation is for chest pain, which happened today, retrosternal, heaviness in nature, nonradiating. She has never had this in the past. She has no family history of early coronary disease. She does not smoke, drink, or use any illicit drugs. At this time she is chest pain free and denies any shortness of breath, palpitations, or diaphoresis. PAST MEDICAL HISTORY: Crohn's disease. DRUG ALLERGIES: SULFA MEDICATIONS. FAMILY HISTORY: Negative for early coronary disease. SOCIAL HISTORY: Patient denies tobacco, alcohol, or illicit drugs. HOME MEDICATIONS: - Tylenol as needed - albuterol as needed - budesonide 3 mg as directed - Humira 40 mg subcutaneous weekly - mesalamine 2.5 grams by mouth at bedtime - metronidazole 500 mg orally three times a day - Tylenol two tablets orally at bedtime as needed at 500 mg - vitamin D 50,000 units orally weekly - Xulane 150/35 mcg per hour via patch REVIEW OF SYSTEMS: Negative for [id number] systems except what is mentioned in the history of present illness (HPI). VITAL SIGNS: Blood pressure is 114/66, heart rate is 69 and regular, respiratory rate 18, temperature 96.6, oxygen saturation 99% on room air. HEAD: Atraumatic, normocephalic. NECK: Supple. No jugular venous distention (JVD). LUNGS: Clear to auscultation. HEART: S1, S2 audible. No murmurs appreciated. ABDOMEN: Soft. Positive bowel sounds. No pedal edema. SKIN: Intact. NEUROLOGIC: Patient awake, alert, oriented times three. LABORATORY DATA: WBC 6.3, hemoglobin is 7.5, hematocrit 25.6, platelets are 455,000. Sodium is 141, potassium is 3.2, chloride 106, CO2 of 25, anion gap 10, BUN 5, creatinine 0.65, glucose is 89. A 12-lead EKG shows normal sinus rhythm with no acute ST abnormalities. Chest x-ray shows no acute cardiopulmonary process. IMPRESSION: Chest pain. PLAN: This patient is likely having chest pain due to anxiety. There is no indication for cardiac workup. She has no risk factors for coronary disease. A 12-lead EKG showed no acute ST abnormalities. Recommendation at this time is to just continue monitoring and no further recommendations at this time. Patient is mildly hypokalemic. Replete potassium. Otherwise, everything else to be at the surgeon's discretion. Again, no further workup necessary for chest pain at this time. Will sign off. Please re-consult if necessary.
[2018-02-28] MEDS: OMEPRAZOLE 20 MG CAP PO SCH (22:38)
[2018-02-28] MEDS: diphenhydrAMINE 25 MG CAP PO SCH (22:56)
[2018-03-01] MEDS: PIPERACILLIN/TAZOBACTAM SOD 3.375 GM in D5W MINI-BAG PLUS 50 ML IV SCH ×2 (01:35→06:16)
[2018-03-01] MEDS: ACETAMINOPHEN TAB 650MG DOSE (2X325MG) PO PRN ×2 (01:36→08:26)
[2018-03-01 02:00] VITALS: BP 119/74
[2018-03-01 06:00] VITALS: BP 111/81
[2018-03-01] MEDS: NS 1,000 ML IV SCH (06:16)
[2018-03-01 06:20] LABS: HEMATOCRIT 26.2 % (36.0-47.0); HEMOGLOBIN 7.6 g/dl (12.0-15.5); MEAN CORPUSCULAR HEMOGLOBIN 20.1 pg (27.0-33.0); MEAN CORPUSCULAR VOLUME 69.3 fl (80.0-96.0); PLATELET COUNT, AUTOMATED 434 10^3/uL (150-450); RED BLOOD COUNT 3.78 10^6/uL (4.00-5.40); WHITE BLOOD COUNT 6.5 10^3/uL (4.0-10.0)
[2018-03-01 06:45] LABS: BLOOD UREA NITROGEN 4 MG/DL (7-18); CALCIUM LEVEL 8.6 MG/DL (8.5-10.1); CARBON DIOXIDE LEVEL 23 MEQ/L (21-32); CHLORIDE LEVEL 111 MEQ/L (98-107); CREATININE FOR GFR 0.56 MG/DL (0.55-1.30); GLOMERULAR FILTRATION RATE > 60.0 (>60); GLUCOSE, FASTING 90 MG/DL (70-100); POTASSIUM SERUM 3.3 MEQ/L (3.5-5.1); SODIUM LEVEL 144 MEQ/L (136-145)
[2018-03-01] MEDS: POTASSIUM CHLORIDE 10 MEQ SR TABLET PO SCH (08:21)
[2018-03-01] MEDS: BUDESONIDE EC 3 MG CAP (ENTOCORT EC) PO SCH (08:21)
[2018-03-01] MEDS: OMEPRAZOLE 20 MG CAP PO SCH ×2 (08:21→21:32)
--- NOTE | 2018-03-01 08:33 | IPNPDOC ---
Text Note Date of Service The patient was seen on 03/01/18. NOTE No acute events overnight. Her abd pain is improved. Denies nausea, emesis, fevers, or pains. She had a little chest pressure yesterday that has all resolved, and was likely related to anxiety. No more fevers. VSSAF UOP - 1025 drain - 50 NAD abd - soft, nt, nd, drain in the RLQ with some purulent drainage labs - below wbc - 13.5>6.3>6.5 A) 27y/o female with exacerbation of crohns disease with a RLQ abscess s/p drainage asymptomatic chronic anemia P) reg diet replace potassium ambulate monitor drain output switch to PO abx, and plan on possible d/c home tomorrow Brandon Jansen DO VS,Fabby, I+O VSFabby, I+O Laboratory Tests 03/01/18 06:04 Red Blood Count 3.78 L, Mean Corpuscular Volume 69.3 L, Mean Corpuscular Hemoglobin 20.1 L, Mean Corpuscular Hemoglobin Concent 29.0 L, Red Cell Distribution Width 21.8 H, Calcium Level 8.6 Vital Signs Date Time Temp Pulse Resp B/P (MAP) Pulse Ox O2 Delivery O2 Flow Rate FiO2 03/01/18 06:00 96.2 89 18 111/81 (91) 99 Room Air l I&O- Last 24 Hours up to 6 AM 03/01/18 06:00 Intake Total 3250 ml Output Total 1103 ml Balance 2147 ml PAUL JANSEN DO Mar 01, 2018 08:33
[2018-03-01] MEDS: metroNIDAZOLE (FLAGYL) 500 MG TAB PO SCH ×3 (09:19→21:32)
[2018-03-01] MEDS: CIPROFLOXACIN 500 MG TAB PO SCH ×2 (09:19→17:30)
[2018-03-01 10:00] VITALS: BP 128/72
[2018-03-01 14:00] VITALS: BP 127/60
[2018-03-01 18:00] VITALS: BP 118/73
[2018-03-01 20:00] VITALS: BP 131/72
[2018-03-01] MEDS: diphenhydrAMINE 25 MG CAP PO SCH (21:32)
[2018-03-02 00:30] VITALS: BP 117/73
[2018-03-02 05:00] VITALS: BP 115/72
[2018-03-02] MEDS: CIPROFLOXACIN 500 MG TAB PO SCH (05:40)
[2018-03-02] MEDS: metroNIDAZOLE (FLAGYL) 500 MG TAB PO SCH (05:40)
[2018-03-02] MEDS: ACETAMINOPHEN TAB 650MG DOSE (2X325MG) PO PRN (05:42)
[2018-03-02 08:00] VITALS: BP 128/78
[2018-03-02] MEDS: OMEPRAZOLE 20 MG CAP PO SCH (08:25)
[2018-03-02] MEDS: BUDESONIDE EC 3 MG CAP (ENTOCORT EC) PO SCH (08:25)
[2018-03-02] MEDS: POTASSIUM CHLORIDE 10 MEQ SR TABLET PO SCH (08:25)
[2018-03-02] MEDS ORDERED: FLAG500T PO (09:34)
[2018-03-02] MEDS ORDERED: CIPR-249 PO (09:34)
--- NOTE | 2018-03-03 06:55 | IPN ---
DATE: 03/02/2018 HISTORY: The patient was admitted on the 26 of February with a right lower quadrant abscess presumed secondary to underlying terminal ileal Crohns disease. A percutaneous drainage procedure was performed on the with return of almost 200 mL of purulent matter. Her drain has been putting out much smaller amounts since then. She defervesced rapidly and her white blood cell count returned to normal rapidly as well. She is tolerating a diet now and reports that she has regained an appetite somewhat. Vital signs show that she has been afebrile over the past 24 hours. Her pulse is in the 70s and low 80s and her blood pressure is good. Room air oxygen saturations are normal. Intake and Output: Yesterday, she had 3 liters in with 1870 recorded out. Her drain had 45 mL yesterday and 20 this morning. PHYSICAL EXAMINATION: The patient is up and walking in her room without apparent difficulty. Skin is warm and dry. The drain is securely dressed and has really nothing in the bag now. There is some turbid fluid in the tubing. Her abdomen is obese and soft. Examination of the perineum shows that the small perianal abscess that was noted at the time of admission has opened and there is about a 6 mm opening into this area. The induration and fluctuance has resolved and this appears to be healing well. The patient has no new laboratory studies today. On the weekend on the , her white count was 6 with a hemoglobin of 8, hematocrit of 26 and her chemistries were good other than a slightly depressed potassium at 3.3. IMPRESSION: The patient is doing quite well currently following drainage of her abscess. She has had spontaneous drainage of a small perianal abscess. PLAN: The patient will be discharged home today. She is on ciprofloxacin and Flagyl at this point and these will be continued. She will be instructed to hold her Humira until cleared by Dr. Atkinson. She believes she has a scheduled appointment with Dr. Atkinson on or about March 14. I will plan on seeing her back in the office on March 05 to determine whether the drain can be removed. She can take a diet as tolerated and pursue activity as tolerated. She will have to do sponge baths until we remove her drain. CRISTEL
== END 2018-03-02 10:50 | disposition home or self-care (01) | DRG 245 ==
LOC: M ED 15:27 → M ED INP 19:23 → M MSPAV 20:50 → M MS4PR 02-27 22:46 → M PED 03-01 17:45
PROVIDERS: ADMIT Surgery; ATTEND Surgery
PROC: 0W9G30Z Drainage of Peritoneal Cavity with Drainage Device, Percutaneous Approach (ICD-10-PCS; principal; 2018-02-27)
DX: K50.014 Crohn's disease of small intestine with abscess (principal); D64.9 Anemia, unspecified; J45.909 Unspecified asthma, uncomplicated; Z88.2 Allergy status to sulfonamides; Z79.899 Other long term (current) drug therapy; E87.6 Hypokalemia

== ENCOUNTER → 2018-04-09 | Outpatient (CLI) | payer BC ==
[~2018-04-09] MED LIST changes: +ACET-683 PO; +BUDE3CAP PO; +CIPR-249 PO; +DRIS50003 PO; +FLAG500T PO; +MESA1.2T PO; +METR-201 PO; +TYLE1TAB5 PO; +VENTAER INH
[2018-04-09 14:04] LABS: HEMATOCRIT 33.3 % (36.0-47.0); MEAN CORPUSCULAR HEMOGLOBIN 22.8 pg (27.0-33.0); MEAN CORPUSCULAR VOLUME 75.9 fl (80.0-96.0); PLATELET COUNT, AUTOMATED 447 10^3/uL (150-450); RED BLOOD COUNT 4.39 10^6/uL (4.00-5.40); WHITE BLOOD COUNT 11.5 10^3/uL (4.0-10.0)
[2018-04-09 14:36] LABS: ALBUMIN 2.9 GM/DL (3.2-5.2); ALT/SGPT 12 U/L (12-78); BILIRUBIN,TOTAL 0.5 MG/DL (0.2-1.0); BLOOD UREA NITROGEN 7 MG/DL (7-18); CARBON DIOXIDE LEVEL 27 MEQ/L (21-32); CHLORIDE LEVEL 103 MEQ/L (98-107); CREATININE FOR GFR 0.64 MG/DL (0.55-1.30); GLOMERULAR FILTRATION RATE > 60.0 (>60); GLUCOSE, FASTING 88 MG/DL (70-100); IRON (FE) 18 UG/DL (50-170); PERCENT SATURATION 5.1 % (13.2-45.0); SODIUM LEVEL 137 MEQ/L (136-145); TOTAL IRON BINDING CAPACITY 355 UG/DL (250-450); TOTAL PROTEIN 7.1 GM/DL (6.4-8.2)
[2018-04-13 10:35] LABS: VITAMIN B12 LEVEL 470 PG/ML (232-1245)
== END ==
LOC: M SMT 09:10
PROVIDERS: ATTEND Internal Medicine Gastroenterology
DX: R10.31 Right lower quadrant pain (principal); K50.80 Crohn's disease of both small and large intestine without complications; K59.1 Functional diarrhea; D50.9 Iron deficiency anemia, unspecified; A04.72 Enterocolitis due to Clostridium difficile, not specified as recurrent; R14.2 Eructation

== ENCOUNTER → 2018-04-27 | Outpatient (REF) | payer BC ==
[2018-04-27 14:59] LABS: BASO # 0.1 10^3/uL (0.0-0.2); BASO % 0.9 % (0.0-1.0); EOS # 0.3 10^3/uL (0.0-0.50); EOS % 4.3 % (0.0-3.0); HEMOGLOBIN 9.1 g/dl (12.0-15.5); LYMPH # 1.5 10^3/uL (1.5-6.5); LYMPH % 25.6 % (24.0-44.0); MEAN CORPUSCULAR HEMOGLOBIN 22.5 pg (27.0-33.0); MEAN CORPUSCULAR HGB CONC 30.3 g/dl (32.0-36.5); MEAN CORPUSCULAR VOLUME 74.1 fl (80.0-96.0); MONO # 0.4 10^3/uL (0.0-0.8); NEUTROPHILS # 3.6 10^3/uL (1.8-7.7); NEUTROPHILS % 61.9 % (36.0-66.0); PLATELET COUNT, AUTOMATED 529 10^3/uL (150-450); RED BLOOD COUNT 4.05 10^6/uL (4.00-5.40); WHITE BLOOD COUNT 5.8 10^3/uL (4.0-10.0)
[2018-04-27 15:23] LABS: ALBUMIN 2.5 GM/DL (3.2-5.2); ALT/SGPT 21 U/L (12-78); BILIRUBIN,TOTAL 0.2 MG/DL (0.2-1.0); BLOOD UREA NITROGEN 4 MG/DL (7-18); CALCIUM LEVEL 8.4 MG/DL (8.5-10.1); CARBON DIOXIDE LEVEL 29 MEQ/L (21-32); CHLORIDE LEVEL 104 MEQ/L (98-107); GLOMERULAR FILTRATION RATE > 60.0 (>60); GLUCOSE, FASTING 83 MG/DL (70-100); POTASSIUM SERUM 4.2 MEQ/L (3.5-5.1); SODIUM LEVEL 141 MEQ/L (136-145); TOTAL PROTEIN 6.9 GM/DL (6.4-8.2)
[2018-04-27 15:32] LABS: ERYTHROCYTE SEDIMENTATION RATE 81 mm/hr (0-20)
== END ==
LOC: M LAB REF 13:58
PROVIDERS: ATTEND Internal Medicine
DX: K65.1 Peritoneal abscess (principal); Z79.2 Long term (current) use of antibiotics

== ENCOUNTER → 2018-05-04 | Outpatient (REF) | payer BC ==
[2018-05-04 18:51] LABS: BASO # 0.1 10^3/uL (0.0-0.2); BASO % 1.1 % (0.0-1.0); EOS # 0.3 10^3/uL (0.0-0.50); EOS % 4.1 % (0.0-3.0); HEMATOCRIT 34.2 % (36.0-47.0); HEMOGLOBIN 10.2 g/dl (12.0-15.5); LYMPH # 1.8 10^3/uL (1.5-6.5); LYMPH % 28.7 % (24.0-44.0); MEAN CORPUSCULAR HEMOGLOBIN 22.3 pg (27.0-33.0); MEAN CORPUSCULAR HGB CONC 29.8 g/dl (32.0-36.5); MEAN CORPUSCULAR VOLUME 74.7 fl (80.0-96.0); MONO # 0.6 10^3/uL (0.0-0.8); MONO % 9.6 % (0.0-5.0); NEUTROPHILS # 3.4 10^3/uL (1.8-7.7); NEUTROPHILS % 56.2 % (36.0-66.0); PLATELET COUNT, AUTOMATED 403 10^3/uL (150-450); RED BLOOD COUNT 4.58 10^6/uL (4.00-5.40); WHITE BLOOD COUNT 6.1 10^3/uL (4.0-10.0)
[2018-05-04 19:18] LABS: ALBUMIN 3.1 GM/DL (3.2-5.2); ALT/SGPT 39 U/L (12-78); BILIRUBIN,TOTAL 0.3 MG/DL (0.2-1.0); BLOOD UREA NITROGEN 5 MG/DL (7-18); C REACTIVE PROTEIN QUANTITATIV 2.68 MG/DL (0.00-0.30); CALCIUM LEVEL 8.7 MG/DL (8.5-10.1); CARBON DIOXIDE LEVEL 28 MEQ/L (21-32); CHLORIDE LEVEL 104 MEQ/L (98-107); CREATININE FOR GFR 0.61 MG/DL (0.55-1.30); GLOMERULAR FILTRATION RATE > 60.0 (>60); GLUCOSE, FASTING 85 MG/DL (70-100); POTASSIUM SERUM 4.2 MEQ/L (3.5-5.1); SODIUM LEVEL 140 MEQ/L (136-145); TOTAL PROTEIN 7.9 GM/DL (6.4-8.2)
[2018-05-04 19:23] LABS: ERYTHROCYTE SEDIMENTATION RATE 65 mm/hr (0-20)
== END ==
LOC: M LAB REF 17:44
PROVIDERS: ATTEND Internal Medicine
DX: K65.1 Peritoneal abscess (principal)

== ENCOUNTER → 2018-05-11 | Outpatient (REF) | payer BC ==
[2018-05-11 14:11] LABS: BASO % 0.7 % (0.0-1.0); EOS # 0.2 10^3/uL (0.0-0.50); EOS % 3.8 % (0.0-3.0); HEMATOCRIT 33.1 % (36.0-47.0); LYMPH # 1.7 10^3/uL (1.5-6.5); LYMPH % 30.1 % (24.0-44.0); MEAN CORPUSCULAR HEMOGLOBIN 22.5 pg (27.0-33.0); MEAN CORPUSCULAR HGB CONC 30.2 g/dl (32.0-36.5); MEAN CORPUSCULAR VOLUME 74.4 fl (80.0-96.0); MONO # 0.4 10^3/uL (0.0-0.8); MONO % 7.6 % (0.0-5.0); NEUTROPHILS # 3.2 10^3/uL (1.8-7.7); NEUTROPHILS % 57.4 % (36.0-66.0); PLATELET COUNT, AUTOMATED 353 10^3/uL (150-450); RED BLOOD COUNT 4.45 10^6/uL (4.00-5.40); WHITE BLOOD COUNT 5.5 10^3/uL (4.0-10.0)
[2018-05-11 14:41] LABS: ERYTHROCYTE SEDIMENTATION RATE 54 mm/hr (0-20)
[2018-05-11 15:13] LABS: ALT/SGPT 38 U/L (12-78); BILIRUBIN,TOTAL 0.3 MG/DL (0.2-1.0); BLOOD UREA NITROGEN 6 MG/DL (7-18); C REACTIVE PROTEIN QUANTITATIV 2.83 MG/DL (0.00-0.30); CALCIUM LEVEL 8.4 MG/DL (8.5-10.1); CARBON DIOXIDE LEVEL 25 MEQ/L (21-32); CHLORIDE LEVEL 106 MEQ/L (98-107); CREATININE FOR GFR 0.56 MG/DL (0.55-1.30); GLOMERULAR FILTRATION RATE > 60.0 (>60); GLUCOSE, FASTING 72 MG/DL (70-100); POTASSIUM SERUM 4.7 MEQ/L (3.5-5.1); SODIUM LEVEL 138 MEQ/L (136-145); TOTAL PROTEIN 7.4 GM/DL (6.4-8.2)
== END ==
LOC: M LAB REF 13:16
PROVIDERS: ATTEND Internal Medicine
DX: K65.1 Peritoneal abscess (principal); Z79.2 Long term (current) use of antibiotics

== ENCOUNTER → 2018-05-18 | Outpatient (REF) | payer BC ==
[2018-05-18 19:18] LABS: BASO # 0.1 10^3/uL (0.0-0.2); BASO % 0.9 % (0.0-1.0); EOS # 0.5 10^3/uL (0.0-0.50); EOS % 8.7 % (0.0-3.0); HEMATOCRIT 30.9 % (36.0-47.0); HEMOGLOBIN 9.2 g/dl (12.0-15.5); LYMPH # 1.7 10^3/uL (1.5-6.5); MEAN CORPUSCULAR HEMOGLOBIN 21.9 pg (27.0-33.0); MEAN CORPUSCULAR HGB CONC 29.8 g/dl (32.0-36.5); MEAN CORPUSCULAR VOLUME 73.6 fl (80.0-96.0); MONO # 0.6 10^3/uL (0.0-0.8); MONO % 9.7 % (0.0-5.0); NEUTROPHILS % 51.4 % (36.0-66.0); PLATELET COUNT, AUTOMATED 377 10^3/uL (150-450); WHITE BLOOD COUNT 5.9 10^3/uL (4.0-10.0)
[2018-05-18 19:37] LABS: ALBUMIN 2.8 GM/DL (3.2-5.2); ALT/SGPT 31 U/L (12-78); BILIRUBIN,TOTAL 0.2 MG/DL (0.2-1.0); BLOOD UREA NITROGEN 4 MG/DL (7-18); C REACTIVE PROTEIN QUANTITATIV 3.97 MG/DL (0.00-0.30); CALCIUM LEVEL 8.6 MG/DL (8.5-10.1); CARBON DIOXIDE LEVEL 29 MEQ/L (21-32); CHLORIDE LEVEL 106 MEQ/L (98-107); CREATININE FOR GFR 0.53 MG/DL (0.55-1.30); GLOMERULAR FILTRATION RATE > 60.0 (>60); GLUCOSE, FASTING 80 MG/DL (70-100); SODIUM LEVEL 139 MEQ/L (136-145); TOTAL PROTEIN 6.7 GM/DL (6.4-8.2)
[2018-05-18 19:58] LABS: ERYTHROCYTE SEDIMENTATION RATE 58 mm/hr (0-20)
== END ==
LOC: M LAB REF 18:10
PROVIDERS: ATTEND Internal Medicine
DX: K65.1 Peritoneal abscess (principal); Z79.2 Long term (current) use of antibiotics

== ENCOUNTER → 2018-07-20 | Outpatient (CLI) | payer BC ==
[~2018-07-20] MED LIST changes: -METR-201 PO; +METR-265 PO
[2018-07-20 12:32] LABS: BASO # 0.1 10^3/uL (0.0-0.2); BASO % 1.3 % (0.0-1.0); EOS # 0.9 10^3/uL (0.0-0.50); EOS % 15.6 % (0.0-3.0); HEMATOCRIT 29.8 % (36.0-47.0); HEMOGLOBIN 8.9 g/dl (12.0-15.5); LYMPH # 1.2 10^3/uL (1.5-6.5); LYMPH % 21.9 % (24.0-44.0); MEAN CORPUSCULAR HEMOGLOBIN 20.9 pg (27.0-33.0); MEAN CORPUSCULAR HGB CONC 29.9 g/dl (32.0-36.5); MONO # 0.4 10^3/uL (0.0-0.8); MONO % 7.4 % (0.0-5.0); NEUTROPHILS % 53.4 % (36.0-66.0); PLATELET COUNT, AUTOMATED 364 10^3/uL (150-450); RED BLOOD COUNT 4.26 10^6/uL (4.00-5.40); WHITE BLOOD COUNT 5.6 10^3/uL (4.0-10.0)
[2018-07-20 12:56] LABS: ERYTHROCYTE SEDIMENTATION RATE 43 mm/hr (0-20)
[2018-07-20 13:04] LABS: ALBUMIN 3.2 GM/DL (3.2-5.2); BILIRUBIN,DIRECT 0.1 MG/DL (0.0-0.2); BILIRUBIN,TOTAL 0.4 MG/DL (0.2-1.0); C REACTIVE PROTEIN QUANTITATIV 2.68 MG/DL (0.00-0.30); THYROID STIMULATING HORMONE 1.62 uIU/ML (0.358-3.740); TOTAL 25(OH) VITAMIN D 12.8 NG/ML (30.0-100.0); TOTAL PROTEIN 6.6 GM/DL (6.4-8.2)
== END ==
LOC: M LAB 11:30
PROVIDERS: ATTEND Student in an Organized Health Care Education/Training Program
DX: K50.814 Crohn's disease of both small and large intestine with abscess (principal); K60.1 Chronic anal fissure; R10.31 Right lower quadrant pain; R19.7 Diarrhea, unspecified

== ENCOUNTER → 2018-09-14 | Outpatient (REF) | payer BC | LOC: M LAB REF 17:52 | PROVIDERS: ATTEND Physician Assistant | DX: B37.3 Candidiasis of vulva and vagina (principal) ==

== ENCOUNTER → 2018-10-14 | Outpatient (CLI) | payer BC ==
[2018-10-14 14:57] LABS: ALBUMIN 3.2 GM/DL (3.2-5.2); ALT/SGPT 26 U/L (12-78); BILIRUBIN,TOTAL 0.2 MG/DL (0.2-1.0); BLOOD UREA NITROGEN 10 MG/DL (7-18); C REACTIVE PROTEIN QUANTITATIV 1.64 MG/DL (0.00-0.30); CALCIUM LEVEL 8.8 MG/DL (8.5-10.1); CARBON DIOXIDE LEVEL 26 MEQ/L (21-32); CHLORIDE LEVEL 109 MEQ/L (98-107); CREATININE FOR GFR 0.65 MG/DL (0.55-1.30); FERRITIN 4 NG/ML (8-252); GLOMERULAR FILTRATION RATE > 60.0 (>60); GLUCOSE, FASTING 83 MG/DL (70-100); IRON (FE) 212 UG/DL (50-170); PERCENT SATURATION 51.5 % (13.2-45.0); POTASSIUM SERUM 4.6 MEQ/L (3.5-5.1); SODIUM LEVEL 140 MEQ/L (136-145); TOTAL IRON BINDING CAPACITY 412 UG/DL (250-450)
[2018-10-14 15:01] LABS: BASO # 0.1 10^3/uL (0.0-0.2); BASO % 0.7 % (0.0-1.0); EOS # 0.6 10^3/uL (0.0-0.50); EOS % 8.5 % (0.0-3.0); HEMATOCRIT 32.9 % (36.0-47.0); HEMOGLOBIN 9.5 g/dl (12.0-15.5); LYMPH # 1.4 10^3/uL (1.5-6.5); LYMPH % 19.6 % (24.0-44.0); MEAN CORPUSCULAR HEMOGLOBIN 20.3 pg (27.0-33.0); MEAN CORPUSCULAR HGB CONC 28.9 g/dl (32.0-36.5); MEAN CORPUSCULAR VOLUME 70.4 fl (80.0-96.0); MONO # 0.5 10^3/uL (0.0-0.8); MONO % 6.4 % (0.0-5.0); NEUTROPHILS # 4.6 10^3/uL (1.8-7.7); NEUTROPHILS % 64.5 % (36.0-66.0); PLATELET COUNT, AUTOMATED 352 10^3/uL (150-450); RED BLOOD COUNT 4.67 10^6/uL (4.00-5.40); WHITE BLOOD COUNT 7.1 10^3/uL (4.0-10.0)
[2018-10-14 16:36] LABS: ERYTHROCYTE SEDIMENTATION RATE 39 mm/hr (0-20)
[2018-10-16 14:17] LABS: Lyme Disease IgG/IgM Antibodie <0.91 ISR (0.00-0.90); Lyme Disease IgM Ab Quantitati <0.80 index (0.00-0.79); VITAMIN D 1,25 DIHYDROXY 53.3 pg/mL (19.9-79.3)
== END ==
LOC: M SMT 10:26
PROVIDERS: ATTEND Physician Assistant
DX: M25.50 Pain in unspecified joint (principal); D50.9 Iron deficiency anemia, unspecified; E55.9 Vitamin D deficiency, unspecified

== ENCOUNTER 2019-01-15 06:53 | Outpatient (CLI) | payer BC ==
[~2019-01-15] VITALS: Ht 170.2 cm; Wt 121.4 kg
[~2019-01-15 06:53] MED LIST changes: -OMEP40CA2 PO; +OMEP40CA97 PO
[2019-01-15] MEDS ORDERED: FERRIC CARBOXYMALTOSE INJ 750 MG in NS 250 ML IV ONE (07:30)
[2019-01-15 08:10] VITALS: BP 123/61
[2019-01-15 09:10] VITALS: BP 114/58
[2019-01-15 09:40] VITALS: BP 120/58
[2019-01-15 09:50] VITALS: BP 148/72
== END 2019-01-15 09:44 | disposition home or self-care (01) ==
LOC: M INFU 06:53
PROVIDERS: ATTEND Physician Assistant
DX: D50.9 Iron deficiency anemia, unspecified (principal); Z88.2 Allergy status to sulfonamides
CPT/HCPCS: 96365; 96366; J1439

== ENCOUNTER 2019-01-22 08:18 | Outpatient (CLI) | payer BC ==
[~2019-01-22] VITALS: Ht 170.2 cm; Wt 121.4 kg
[2019-01-22 08:39] VITALS: BP 118/66
[2019-01-22] MEDS ORDERED: FERRIC CARBOXYMALTOSE INJ 750 MG in NS 250 ML IV ONE (09:00)
[2019-01-22 10:43] VITALS: BP 124/64
[2019-01-22 11:00] VITALS: BP 115/61
== END 2019-01-22 11:00 | disposition home or self-care (01) ==
LOC: M INFU 08:18
PROVIDERS: ATTEND Physician Assistant
DX: D50.9 Iron deficiency anemia, unspecified (principal); Z88.2 Allergy status to sulfonamides; Z91.09 Other allergy status, other than to drugs and biological substances
CPT/HCPCS: 96365; 96366; J1439

== ENCOUNTER → 2019-03-19 | Outpatient (CLI) | payer BC ==
[~2019-03-19] MED LIST changes: +FLUO20CA20 PO; -FLUO20CA8 PO
[2019-03-19 15:42] LABS: BASO # 0.1 10^3/uL (0.0-0.2); BASO % 1.4 % (0.0-1.0); EOS # 0.5 10^3/uL (0.0-0.5); EOS % 7.3 % (0.0-3.0); HEMATOCRIT 40.6 % (36.0-47.0); HEMOGLOBIN 12.4 g/dl (12.0-15.5); LYMPH # 1.4 10^3/uL (1.5-5.0); LYMPH % 21.1 % (24.0-44.0); MEAN CORPUSCULAR HEMOGLOBIN 25.2 pg (27.0-33.0); MEAN CORPUSCULAR HGB CONC 30.5 g/dl (32.0-36.5); MEAN CORPUSCULAR VOLUME 82.4 fl (80.0-96.0); MONO # 0.5 10^3/uL (0.0-0.8); MONO % 7.9 % (0.0-5.0); NEUTROPHILS # 4.1 10^3/uL (1.5-8.5); NEUTROPHILS % 62.1 % (36.0-66.0); PLATELET COUNT, AUTOMATED 320 10^3/uL (150-450); RED BLOOD COUNT 4.93 10^6/uL (4.00-5.40); WHITE BLOOD COUNT 6.6 10^3/uL (4.0-10.0)
[2019-03-19 15:59] LABS: ERYTHROCYTE SEDIMENTATION RATE 26 mm/hr (0-20)
[2019-03-19 16:07] LABS: PERCENT SATURATION 17.4 % (13.2-45.0)
[2019-03-19 16:11] LABS: ALBUMIN 3.1 GM/DL (3.2-5.2); ALT/SGPT 12 U/L (12-78); BILIRUBIN,DIRECT < 0.1 MG/DL (0.0-0.2); BILIRUBIN,TOTAL 0.2 MG/DL (0.2-1.0); C REACTIVE PROTEIN QUANTITATIV 2.78 MG/DL (0.00-0.30); FERRITIN 44 NG/ML (8-252); IRON (FE) 65 UG/DL (50-170)
[2019-03-19 16:12] LABS: TOTAL 25(OH) VITAMIN D 9.6 NG/ML (30.0-100.0)
[2019-03-19 16:13] LABS: VITAMIN B12 LEVEL 379 PG/ML (247-911)
== END ==
LOC: M PLALAB 12:31
PROVIDERS: ATTEND Student in an Organized Health Care Education/Training Program
DX: K50.80 Crohn's disease of both small and large intestine without complications (principal); K42.9 Umbilical hernia without obstruction or gangrene; D50.0 Iron deficiency anemia secondary to blood loss (chronic)

== ENCOUNTER → 2019-11-06 | Outpatient (CLI) | payer BC | LOC: M WUC 10:00 | PROVIDERS: ATTEND Student in an Organized Health Care Education/Training Program | DX: K50.80 Crohn's disease of both small and large intestine without complications (principal) ==

== ENCOUNTER → 2020-01-06 | Outpatient (REF) | payer BC | LOC: M LAB REF 16:47 | PROVIDERS: ATTEND Physician Assistant | DX: N39.0 Urinary tract infection, site not specified (principal) ==

== ENCOUNTER 2020-01-16 15:20 | Emergency (ER) | payer BC ==
[~2020-01-16] VITALS: Ht 170.2 cm; Wt 140.3 kg
[2020-01-16 16:06] LABS: BASO # 0.1 10^3/uL (0.0-0.2); BASO % 0.7 % (0.0-1.0); EOS # 0.4 10^3/uL (0.0-0.5); EOS % 4.6 % (0.0-3.0); HEMATOCRIT 40.6 % (36.0-47.0); HEMOGLOBIN 12.6 g/dl (12.0-15.5); LYMPH # 1.7 10^3/uL (1.5-5.0); LYMPH % 17.8 % (24.0-44.0); MEAN CORPUSCULAR HEMOGLOBIN 25.6 pg (27.0-33.0); MEAN CORPUSCULAR VOLUME 82.5 fl (80.0-96.0); MONO # 0.6 10^3/uL (0.0-0.8); MONO % 6.3 % (0.0-5.0); NEUTROPHILS # 6.7 10^3/uL (1.5-8.5); NEUTROPHILS % 70.3 % (36.0-66.0); PLATELET COUNT, AUTOMATED 338 10^3/uL (150-450); RED BLOOD COUNT 4.92 10^6/uL (4.00-5.40); WHITE BLOOD COUNT 9.5 10^3/uL (4.0-10.0)
--- NOTE | 2020-01-16 17:12 | REPVR ---
PROCEDURE INFORMATION: Exam: US First Trimester, Transabdominal Exam date and time: 01/16/2020 4:55 PM Age: 29 years old Clinical indication: Condition or disease; Lmp or gestational age (weeks): 7 weeks 1 d; Other: Vaginal spotting; 1st ; ; Additional info: Pelvic pain/bleeding; Lmp- 11/27/19, vaginal spotting, states no pain at the time of exam TECHNIQUE: Imaging protocol: Real-time transabdominal obstetrical ultrasound of the maternal pelvis and a first trimester , less than 14 weeks 0 days, with image documentation. COMPARISON: No relevant prior studies available. FINDINGS: Gestation: Single gestational sac in the uterus. There is a 4 mm yolk sac demonstrated. Embryonic/ heart rate: 121 bpm Placenta: Unremarkable. No subchorionic bleed. Amniotic fluid: Amniotic fluid is normal for gestational age. BIOMETRY: Gestational age (AUA): Gestational age based on crown-rump length is 6 weeks 3 days. Gestational age based on LMP of 11/27/2019 is 7 weeks 1 day. Estimated due date (AUA): SHANNA based on ultrasound is 09/07/2020 [place]-Rump length: Single pole demonstrated in the uterus with a crown-rump length of 6 mm. MATERNAL: Uterus: Unremarkable. Cervix: Unremarkable. Right adnexa: 2.4 x 2.4 x 1.5 cm hypoechoic structure right ovary likely represents a cyst. No significant increased flow on Doppler. Otherwise unremarkable. Left adnexa: Unremarkable. Intraperitoneal space: No intraperitoneal free fluid. IMPRESSION: Unremarkable 1st trimester gestation measuring 6 weeks 3 days using crown-rump length versus 7 weeks 1 day using LMP. Electronically signed by: Cody Medrano On 01/16/2020 17:11:52 PM
[2020-01-16] MEDS ORDERED: CEPHALEXIN 500 MG CAP PO ONE (18:15)
[2020-01-16] MEDS ORDERED: CEPH500C PO (18:17)
[2020-01-16 18:41] VITALS: BP 136/94
== END 2020-01-16 18:42 | disposition home or self-care (01) ==
LOC: M ED 15:20
DX: O20.9 Hemorrhage in early pregnancy, unspecified (principal); O23.41 Unspecified infection of urinary tract in pregnancy, first trimester; O99.611 Diseases of the digestive system complicating pregnancy, first trimester; K50.90 Crohn's disease, unspecified, without complications; O99.341 Other mental disorders complicating pregnancy, first trimester; F33.9 Major depressive disorder, recurrent, unspecified; F41.9 Anxiety disorder, unspecified; Z88.1 Allergy status to other antibiotic agents; Z88.2 Allergy status to sulfonamides; O99.511 Diseases of the respiratory system complicating pregnancy, first trimester; J30.89 Other allergic rhinitis; Z3A.00 Weeks of gestation of pregnancy not specified

== ENCOUNTER → 2020-01-19 | Outpatient (CLI) | payer BC ==
[~2020-01-19] MED LIST changes: +CEPH500C PO
== END ==
LOC: M WUC 09:55
PROVIDERS: ATTEND Emergency Medicine
DX: Z32.00 Encounter for pregnancy test, result unknown (principal)

== ENCOUNTER → 2020-01-24 | Outpatient (REF) | payer BC ==
[~2020-01-24] MED LIST changes: +STEL90IN SUBQ
[2020-01-24 18:09] LABS: APPEARANCE, URINE HAZY (CLEAR); BACTERIA, URINE AUTO NEGATIVE (NEGATIVE); BILIRUBIN, URINE AUTO NEGATIVE (NEGATIVE); BLOOD, URINE BLOOD 1+ (NEGATIVE); COLOR, URINE YELLOW (YELLOW); GLUCOSE, URINE (UA) AUTO NEGATIVE (NEGATIVE); GRANULAR CAST, URINE AUTO 3 /LPF; KETONE, URINE AUTO NEGATIVE (NEGATIVE); LEUKOCYTE ESTERASE, URINE AUTO NEGATIVE (NEGATIVE); MUCUS, URINE SMALL (NEGATIVE); NITRITE, URINE AUTO NEGATIVE (NEGATIVE); PROTEIN, URINE AUTO 1+ mg/dL (NEGATIVE); RBC, URINE AUTO 0 /HPF (0-3); SPECIFIC GRAVITY URINE AUTO 1.018 (1.002-1.035); SQUAMOUS EPITHELIAL CELL UR AU 1 /HPF (0-6); UROBILINOGEN, URINE AUTO 0.2 mg/dL (0.0-2.0); WBC, URINE AUTO 3 /HPF (0-3)
== END ==
LOC: M LAB REF 17:11
PROVIDERS: ATTEND Physician Assistant
DX: R31.9 Hematuria, unspecified (principal); N39.0 Urinary tract infection, site not specified; Z33.1 Pregnant state, incidental

== ENCOUNTER 2020-01-25 10:06 | Emergency (ER) | payer BC ==
[~2020-01-25] VITALS: Ht 170.2 cm; Wt 140.4 kg
[~2020-01-25 10:06] MED LIST changes: -STEL90IN SUBQ
[2020-01-25] MEDS ORDERED: STEL90IN SUBQ (10:17)
[2020-01-25 11:30] LABS: BASO # 0.1 10^3/uL (0.0-0.2); BASO % 0.8 % (0.0-1.0); EOS # 0.2 10^3/uL (0.0-0.5); EOS % 2.4 % (0.0-3.0); HEMATOCRIT 40.7 % (36.0-47.0); HEMOGLOBIN 13.5 g/dl (12.0-15.5); LYMPH # 1.3 10^3/uL (1.5-5.0); LYMPH % 16.1 % (24.0-44.0); MEAN CORPUSCULAR HEMOGLOBIN 27.5 pg (27.0-33.0); MEAN CORPUSCULAR HGB CONC 33.2 g/dl (32.0-36.5); MEAN CORPUSCULAR VOLUME 82.9 fl (80.0-96.0); MONO # 0.3 10^3/uL (0.0-0.8); MONO % 4.2 % (0.0-5.0); NEUTROPHILS # 6.1 10^3/uL (1.5-8.5); NEUTROPHILS % 76.1 % (36.0-66.0); PLATELET COUNT, AUTOMATED 311 10^3/uL (150-450); RED BLOOD COUNT 4.91 10^6/uL (4.00-5.40)
[2020-01-25] MEDS ORDERED: NS 1,000 ML IV ONE (12:30)
[2020-01-25 12:50] LABS: BLOOD UREA NITROGEN 7 MG/DL (7-18); CALCIUM LEVEL 9.3 MG/DL (8.5-10.1); CARBON DIOXIDE LEVEL 26 MEQ/L (21-32); CHLORIDE LEVEL 106 MEQ/L (98-107); CREATININE FOR GFR 0.61 MG/DL (0.55-1.30); GLOMERULAR FILTRATION RATE > 60.0 (>60); GLUCOSE, FASTING 84 MG/DL (70-100); HCG, SERUM QUANTITATIVE 36331 MIU/ML; POTASSIUM SERUM 4.1 MEQ/L (3.5-5.1); SODIUM LEVEL 138 MEQ/L (136-145)
--- NOTE | 2020-01-25 13:56 | REP ---
INDICATION: vaginal bleeding 7 weeks COMPARISON: 01/16/2020 TECHNIQUE: Transabdominal 1st trimester obstetrical ultrasound with color Doppler evaluation. FINDINGS: Single live early intrauterine is appreciated. Gestational sac with yolk sac and pole identified. Powers-rump length of 12 mm corresponds to 7 weeks 3 days gestational age with estimated date of delivery 09/09/2020. heart rate equals 160 beats per minute. Small subchorionic hemorrhages are identified measuring 13 x 4 x 8 mm and 12 x 5 x 12 mm. Right corpus luteal cyst measuring 2.1 cm noted. IMPRESSION: 1. Single live early intrauterine at 7 weeks 3 days gestational age. Complete anatomical assessment should be performed and 19-20 weeks. 2. Two small subchorionic hemorrhages are identified. <Electronically signed by Narayan Talavera > 01/25/20 [id number]
[2020-01-25 14:17] VITALS: BP 129/62
== END 2020-01-25 14:32 | disposition home or self-care (01) ==
LOC: M ED 10:06
DX: O20.8 Other hemorrhage in early pregnancy (principal); R03.0 Elevated blood-pressure reading, without diagnosis of hypertension; O34.81 Maternal care for other abnormalities of pelvic organs, first trimester; N83.201 Unspecified ovarian cyst, right side; O99.511 Diseases of the respiratory system complicating pregnancy, first trimester; J45.909 Unspecified asthma, uncomplicated; O99.341 Other mental disorders complicating pregnancy, first trimester; F33.9 Major depressive disorder, recurrent, unspecified; F41.9 Anxiety disorder, unspecified; K50.90 Crohn's disease, unspecified, without complications; O99.611 Diseases of the digestive system complicating pregnancy, first trimester; K44.9 Diaphragmatic hernia without obstruction or gangrene; Z3A.01 Less than 8 weeks gestation of pregnancy; Z79.899 Other long term (current) drug therapy; Z88.1 Allergy status to other antibiotic agents; Z88.2 Allergy status to sulfonamides

== ENCOUNTER → 2020-02-01 | Outpatient (REF) | payer BC ==
[~2020-02-01] MED LIST changes: +STEL90IN SUBQ
== END ==
LOC: M SFHCWAGY 13:25
PROVIDERS: ATTEND Advanced Practice Midwife
DX: Z12.4 Encounter for screening for malignant neoplasm of cervix (principal)

== ENCOUNTER → 2020-02-08 | Outpatient (CLI) | payer BC ==
[2020-02-08 16:00] LABS: BASO % 0.4 % (0.0-1.0); EOS # 0.2 10^3/uL (0.0-0.5); EOS % 2.4 % (0.0-3.0); HEMATOCRIT 38.2 % (36.0-47.0); LYMPH # 1.3 10^3/uL (1.5-5.0); LYMPH % 18.1 % (24.0-44.0); MEAN CORPUSCULAR HEMOGLOBIN 26.1 pg (27.0-33.0); MEAN CORPUSCULAR HGB CONC 31.4 g/dl (32.0-36.5); MONO # 0.4 10^3/uL (0.0-0.8); MONO % 4.9 % (0.0-5.0); NEUTROPHILS # 5.3 10^3/uL (1.5-8.5); NEUTROPHILS % 73.6 % (36.0-66.0); PLATELET COUNT, AUTOMATED 289 10^3/uL (150-450); WHITE BLOOD COUNT 7.1 10^3/uL (4.0-10.0)
[2020-02-08 16:08] LABS: ALT/SGPT 22 U/L (12-78); BILIRUBIN,TOTAL 0.3 MG/DL (0.2-1.0); CREATININE FOR GFR 0.63 MG/DL (0.55-1.30); GLOMERULAR FILTRATION RATE > 60.0 (>60); GLUCOSE CHALLENGE TEST 1 HOUR 149 MG/DL (LESS THAN 140); LDH LACTATE DEHYDROGENASE 149 U/L (84-246)
[2020-02-08 16:26] LABS: TOTAL PROTEIN,RANDOM URINE 34.9 MG/DL (0.0-12.0)
[2020-02-08 16:52] LABS: HEPATITIS C VIRUS ABY INDEX 0.1 INDEX (<0.8); HIV 1&2 SCREEN CENTAUR NEGATIVE (NEGATIVE)
[2020-02-08 17:59] LABS: HEMOGLOBIN A1c 5.2 %
== END ==
LOC: M WUC 09:32
PROVIDERS: ATTEND Advanced Practice Midwife
DX: Z34.91 Encounter for supervision of normal pregnancy, unspecified, first trimester (principal); Z3A.09 9 weeks gestation of pregnancy

== ENCOUNTER → 2020-04-20 | Outpatient (CLI) | payer BC ==
--- NOTE | 2020-04-20 09:06 | REP ---
INDICATION: ANATOMY COMPARISON: 01/25/2020 TECHNIQUE: Transabdominal obstetrical ultrasound with color Doppler evaluation. FINDINGS: Examination demonstrates a single live intrauterine in variable presentation. motion is identified by technologist. Placenta is noted posterior and grade 1 without evidence for placenta previa or abruption. Amniotic fluid volume is normal. Cervix measures 3.9 cm in length and appears closed.. Gestational age by LMP 20 weeks 5 days with SHANNA 09/02/2020. Gestational age by current measurements 20 weeks 3 days with SHANNA 09/04/2020. FHR equals 153 beats per minute. BPD: 4.9 cm at 21 weeks 0 days HC: 18.0 cm at 20 weeks 3 days AC: 14.7 cm at 20 weeks 0 days FL: 3.3 cm at 20 weeks 2 days HL: 3.2 cm at 20 weeks 4 days HC/AC: 1.23 Estimated weight 337 grams (21stpercentile). Anatomical assessment demonstrates normal structures including cranium, choroid plexus, cavum, cerebellum/posterior fossa, facial features, lungs, diaphragm, stomach, cord insertion/three-vessel cord, kidneys/bladder, spine, and extremities. IMPRESSION: Single live intrauterine in variable presentation demonstrating appropriate estimated weight. Limited evaluation of the heart/ventricular outflow tracts. Remainder of the anatomical assessment is complete and normal. <Electronically signed by Narayan Talavera > 04/20/20 [id number]
== END ==
LOC: M WHC 07:29
PROVIDERS: ATTEND Advanced Practice Midwife
DX: O26.852 Spotting complicating pregnancy, second trimester (principal); O99.212 Obesity complicating pregnancy, second trimester; E66.9 Obesity, unspecified; Z3A.20 20 weeks gestation of pregnancy

== ENCOUNTER → 2020-04-24 | Outpatient (CLI) | payer BC | LOC: M WHC 08:21 | PROVIDERS: ATTEND Obstetrics & Gynecology | DX: Z36.89 Encounter for other specified antenatal screening (principal); Z3A.23 23 weeks gestation of pregnancy; Z53.9 Procedure and treatment not carried out, unspecified reason ==

== ENCOUNTER → 2020-05-08 | Outpatient (CLI) | payer BC ==
--- NOTE | 2020-05-08 10:12 | REP ---
INDICATION: F/U ANATOMY. COMPARISON: 04/20/2020. TECHNIQUE: Real-time sonographic evaluation of the gravid uterus performed. FINDINGS: Estimated gestational age is23 weeks 2 days, EDC 09/02/2020. Today's measurements indicate appropriate growth. Presentation: Cephalic Placenta posterior, grade 0, without evidence of placenta previa. heart rate is recorded at 158 beats per minute. Amniotic fluid is subjectively normal. Closed cervical length is measured at 3.7 cm. Biometry chart: BPD: 59 mm, 24 weeks 2 days, 70th percentile. HC: 211 mm, 23 weeks 1 days, 46th percentile AC: 177 mm, 22 weeks 4 days, 35th percentile Femur length: 41 mm, 23 weeks 1 days, 46th percentile HC to AC ratio: 1.19, normal range 1.03-1.22. Estimated weight: 546g, 26th percentile. The visualized anatomy today includes facial structures, stomach, kidneys and bladder which are all grossly unremarkable. Once again the four-chamber heart and ventricular outflow tracts are not well seen due to position. IMPRESSION: Viable single intrauterine gestation as above. Once again the heart structures are not well seen due to position. Recommend follow-up exam. <Electronically signed by Brice Garcia > 05/08/20 [id number]
== END ==
LOC: M WHC 08:25
PROVIDERS: ATTEND Obstetrics & Gynecology
DX: Z36.89 Encounter for other specified antenatal screening (principal); Z3A.23 23 weeks gestation of pregnancy

== ENCOUNTER → 2020-06-10 | Outpatient (CLI) | payer BC ==
[~2020-06-10] MED LIST changes: +NOXI1TAB PO; +PRENTAB9 PO; +TUMS750C5 PO
[2020-06-10 12:17] LABS: HEMATOCRIT 33.3 % (36.0-47.0); HEMOGLOBIN 10.8 g/dl (12.0-15.5); MEAN CORPUSCULAR HGB CONC 32.4 g/dl (32.0-36.5); PLATELET COUNT, AUTOMATED 271 10^3/uL (150-450); RED BLOOD COUNT 4.16 10^6/uL (4.00-5.40); WHITE BLOOD COUNT 10.5 10^3/uL (4.0-10.0)
[2020-06-10 12:45] LABS: HEMOGLOBIN A1c 5.1 %
== END ==
LOC: M LAB 11:50
PROVIDERS: ATTEND Advanced Practice Midwife
DX: Z36.9 Encounter for antenatal screening, unspecified (principal); Z3A.25 25 weeks gestation of pregnancy

== ENCOUNTER 2020-06-14 13:06 | Outpatient (CLI) | payer OTHER, BC ==
[~2020-06-14] VITALS: Ht 170.2 cm; Wt 138.7 kg
[~2020-06-14 13:06] MED LIST changes: -NOXI1TAB PO; -PRENTAB9 PO; -TUMS750C5 PO
[2020-06-14 13:23] VITALS: BP 121/68
[2020-06-14] MEDS ORDERED: PRENTAB9 PO (13:45)
[2020-06-14] MEDS ORDERED: TUMS750C5 PO (13:45)
[2020-06-14] MEDS ORDERED: NOXI1TAB PO (13:47)
[2020-06-14 14:56] LABS: HEMATOCRIT 33.3 % (36.0-47.0); HEMOGLOBIN 10.7 g/dl (12.0-15.5); MEAN CORPUSCULAR HEMOGLOBIN 26.6 pg (27.0-33.0); MEAN CORPUSCULAR HGB CONC 32.1 g/dl (32.0-36.5); MEAN CORPUSCULAR VOLUME 82.6 fl (80.0-96.0); PLATELET COUNT, AUTOMATED 260 10^3/uL (150-450); RED BLOOD COUNT 4.03 10^6/uL (4.00-5.40); WHITE BLOOD COUNT 10.5 10^3/uL (4.0-10.0)
[2020-06-14 15:05] LABS: INR 0.97; PROTHROMBIN TIME 13.1 SECONDS (12.5-14.3)
[2020-06-14 15:06] LABS: PARTIAL THROMBOPLASTIN TIME 27.9 SECONDS (24.2-38.5)
[2020-06-14 15:16] VITALS: BP 119/67
[2020-06-14 16:41] VITALS: BP 136/74
[2020-06-14 17:37] VITALS: BP 127/65
== END 2020-06-14 17:45 | disposition home or self-care (01) ==
LOC: M LDO 13:06
PROVIDERS: ATTEND Advanced Practice Midwife
DX: O9A.213 Injury, poisoning and certain other consequences of external causes complicating pregnancy, third trimester (principal); S30.1XXA Contusion of abdominal wall, initial encounter; W01.0XXA Fall on same level from slipping, tripping and stumbling without subsequent striking against object, initial encounter; Y92.009 Unspecified place in unspecified non-institutional (private) residence as the place of occurrence of the external cause; Z3A.28 28 weeks gestation of pregnancy; O99.213 Obesity complicating pregnancy, third trimester; E66.9 Obesity, unspecified
CPT/HCPCS: 36415; 85027; 85384; 85460; 85610; 85730; G0378; G0463

== ENCOUNTER → 2020-06-14 | Outpatient (CLI) | payer BC ==
--- NOTE | 2020-06-14 11:33 | REP ---
INDICATION: F/U ANATOMY COMPARISON: 05/08/2020 TECHNIQUE: Transabdominal obstetrical ultrasound with color Doppler evaluation. FINDINGS: Examination demonstrates a single live intrauterine in transverse presentation. motion is identified by technologist. Placenta is noted posterior and grade 1 without evidence for placenta previa or abruption. Amniotic fluid volume is normal. Cervix measures 4.8 cm in length and appears closed. There is evidence for nuchal cord. Gestational age by LMP and 1st U/S 28 weeks 4 days with SHANNA 09/02/2020. Gestational age by current measurements 29 weeks 1 day with SHANNA 08/29/2020. FHR equals 153 beats per minute. Estimated weight 1336 grams (56thpercentile). Anatomical assessment demonstrates normal structures including cerebral ventricles, cranium, posterior fossa/cerebellum, cisterna magna, facials features, heart/ventricular outflow tract, diaphragm/stomach, kidneys/bladder, extremities and three-vessel cord. IMPRESSION: 1. Single live intrauterine in transverse lie demonstrating appropriate interval growth. 2. Nuchal cord noted. 3. In conjunction with prior examination anatomical assessment is complete and normal. <Electronically signed by Narayan Talavera > 06/14/20 [id number]
== END ==
LOC: M WHC 09:49
PROVIDERS: ATTEND Advanced Practice Midwife
DX: Z36.2 Encounter for other antenatal screening follow-up (principal); Z3A.25 25 weeks gestation of pregnancy

== ENCOUNTER → 2020-06-21 | Outpatient (REF) | payer BC ==
[~2020-06-21] MED LIST changes: +NOXI1TAB PO; +PRENTAB9 PO; +TUMS750C5 PO
== END ==
LOC: M LAB REF 11:12
PROVIDERS: ATTEND Student in an Organized Health Care Education/Training Program
DX: K50.80 Crohn's disease of both small and large intestine without complications (principal); K60.1 Chronic anal fissure; Z33.1 Pregnant state, incidental

== ENCOUNTER → 2020-07-18 | Outpatient (REF) | payer BC | LOC: M SFHCWAGY 16:55 | PROVIDERS: ATTEND Obstetrics & Gynecology | DX: R30.0 Dysuria (principal) ==

== ENCOUNTER → 2020-08-07 | Outpatient (CLI) | payer BC ==
--- NOTE | 2020-08-07 22:48 | REP ---
INDICATION: Dania,34 WEEKS GESTATION,GROWTH COMPARISON: 06/14/2020 TECHNIQUE: Transabdominal obstetrical ultrasound with color Doppler evaluation. FINDINGS: Examination demonstrates a single live intrauterine in cephalic presentation. motion is identified by technologist. Placenta is noted posterior and grade 1 without evidence for placenta previa or abruption. Amniotic fluid volume is normal. Cervix measures 3.7 cm in length and appears closed.. Selected gestational age: 36 weeks 2 days with SHANNA 09/02/2020. Gestational age by current measurements 36 weeks 2 days with SHANNA 09/02/2020. FHR equals 163 beats per minute. BPD: 9.0 cm at 36 weeks 3 days HC: 32.2 cm at 36 weeks 2 days AC: 32.4 cm at 36 weeks 2 days FL: 7.1 cm at 36 weeks 2 days HL: 6.2 cm at 36 weeks 1 day HC/AC: 0.99 Estimated weight 2906 grams (53rdpercentile). Amniotic fluid index: 13.6 cm Umbilical artery SD ratio: 2.74, 1.81 (1.63-3.49) IMPRESSION: Single live advanced gestation in cephalic presentation demonstrating appropriate interval growth. <Electronically signed by Narayan Talavera > 08/07/20 [id number]
== END ==
LOC: M WHC 11:28
PROVIDERS: ATTEND Advanced Practice Midwife
DX: O99.613 Diseases of the digestive system complicating pregnancy, third trimester (principal); Z3A.36 36 weeks gestation of pregnancy; K50.90 Crohn's disease, unspecified, without complications

== ENCOUNTER → 2020-08-07 | Outpatient (REF) | payer BC ==
[2020-08-07 13:56] LABS: ALBUMIN 2.3 GM/DL (3.2-5.2); ALT/SGPT 11 U/L (12-78); BILIRUBIN,TOTAL 0.3 MG/DL (0.2-1.0); BLOOD UREA NITROGEN 5 MG/DL (7-18); CARBON DIOXIDE LEVEL 23 MEQ/L (21-32); CHLORIDE LEVEL 105 MEQ/L (98-107); CREATININE FOR GFR 0.52 MG/DL (0.55-1.30); GLOMERULAR FILTRATION RATE > 60.0 (>60); GLUCOSE, FASTING 99 MG/DL (70-100); POTASSIUM SERUM 4.1 MEQ/L (3.5-5.1); SODIUM LEVEL 138 MEQ/L (136-145); TOTAL PROTEIN 6.3 GM/DL (6.4-8.2)
== END ==
LOC: M PLALAB 11:16
PROVIDERS: ATTEND Advanced Practice Midwife
DX: O99.713 Diseases of the skin and subcutaneous tissue complicating pregnancy, third trimester (principal); Z3A.00 Weeks of gestation of pregnancy not specified

== ENCOUNTER → 2020-08-10 | Outpatient (REF) | payer BC | LOC: M SFHCWAGY 13:02 | PROVIDERS: ATTEND Advanced Practice Midwife | DX: O99.613 Diseases of the digestive system complicating pregnancy, third trimester (principal) ==

== ENCOUNTER 2020-08-27 12:06 | Inpatient (IN) | payer BC ==
[~2020-08-27] VITALS: Ht 170.2 cm; Wt 143.7 kg
[2020-08-27] VITALS (9 sets, daily range): BP systolic 123–164; BP diastolic 69–107
[~2020-08-27 12:06] MED LIST changes: +OMEP40CA4 PO; -OMEP40CA97 PO
--- NOTE | 2020-08-27 12:25 | HPEPDOC ---
Obstetrical History & Physical General Date of Admission Aug 27, 2020 at 12:06 History of Present Illness 30 yo female at 39 1/7 weeks gestation by LMP c/w 6 week ultrasound (EDC=09/02/2020) presents for labor induction. no contractions. no vaginal bleeding. Information Provided By: Patient Age: 30 : 1 Term: 0 Pre-term: 0 Abortions: 0 Livin Care Care: Good Care Dating Final EDC: Sep 02, 2020 Final EDC by: LMP, 1st trimester (US) Past Medical History Past Obstetrical History : Past Obstetrical History: [employer] History: No pertinent history Past Medical History Medical History Med hx: 1. Crohn's disease 2. Depression Surg hx: 1. Appy 2. bowel resection 3. multiple abdominal abscesses Family History Significant Family History: No pertinent family hx Social History Marital Status: Family situation: Spouse/partner home * Smoker: non-smoker Allergies Coded Allergies: Cat Dander (Unverified Allergy, Unknown, 02/26/18) Dust (Verified Allergy, Unknown, 01/15/19) Sulfa (Sulfonamide Antibiotics) (Verified Adverse Reaction, Mild, N/V, 01/15/19) Medications Scheduled No.137/Iron/Folic Acd ( Vitamin Tablet) 1 Each Tablet, 1 TAB PO DAILY Vitamin D3/Folic Acid (Noxifol-D3 2,500 Unit-1 mg Tab) 2,500 Unit Tablet, 1 TAB PO DAILY Scheduled PRN Albuterol Sulfate (Ventolin Hfa) 108 Mcg/Act Aer, 2 PUFFS INH QID PRN for SHORTNESS OF BREATH Calcium Carbonate (Tums) 300 Mg Tab.chew, 750 MG PO TIDP PRN for HEARTBURN Miscellaneous Medications Ustekinumab (Stelara) 90 Mg/1 Ml Syringe, 1 ML SUBQ Physical Examination Physical Examination GENERAL: Alert and oriented times three. BREAST: . ABDOMEN: Gravid and non-tender to touch. FETUS: Is vertex (VTX) by sterile vaginal examination (SVE), fetus is vertex (VTX) by Shilo. HEART RATE: Regular rate and rhythm. LUNGS: Clear to auscultation (CTA). EXTREMITIES: No edema. No clonus. Deep tendon reflexes (DTRs) + . Laboratory Data [facility] Laboratory Tests 2 6/27/21 12:13: Serology Scanned Report Hepatitis B Testing Pertinent Laboratoy Data Blood Type: A+ Group B Streptococcus: Positive Vaginal Examination Dilation: None Effacement: 30% Station: -2 Cervical Consistency: Medium Cervical Position: Posterior Presentation: Cephalic presentation Assessment Variability: Moderate Accelerations: Positive Decelerations: None Tocometer Frequency: irregular Assessment/Plan Assessment Pt is a 30 year-old (G)1 para (P)0 at 39+1 weeks by LMP c/w 6 weeks ultrasound-week ultrasound presents for labor induction. Plan Admit and orient. Rfid Developer and consent. Diet: reg. Group B Streptococcus (GBS) positive. Labs and intravenous (IV) per unit protocol. Anticipate [normal spontaneous delivery (). C-S as appropriate. PRASHANTH ROMAN MD Aug 27, 2020 12:25
[2020-08-27 13:36] LABS: HEMATOCRIT 32.5 % (36.0-47.0); HEMOGLOBIN 10.1 g/dl (12.0-15.5); MEAN CORPUSCULAR HEMOGLOBIN 23.8 pg (27.0-33.0); MEAN CORPUSCULAR HGB CONC 31.1 g/dl (32.0-36.5); MEAN CORPUSCULAR VOLUME 76.5 fl (80.0-96.0); PLATELET COUNT, AUTOMATED 278 10^3/uL (150-450); RED BLOOD COUNT 4.25 10^6/uL (4.00-5.40); WHITE BLOOD COUNT 9.9 10^3/uL (4.0-10.0)
[2020-08-27] MEDS: miSOPROStol 50MCG 1/2 TABLET SL SCH ×3 (13:53→23:40)
[2020-08-27] MEDS ORDERED: CALCIUM CARBONATE 500 MG CHEW U/D PO PRN (14:50)
[2020-08-28] VITALS (29 sets, daily range): BP systolic 118–149; BP diastolic 61–93
[2020-08-28] MEDS: miSOPROStol 50MCG 1/2 TABLET SL SCH ×2 (01:00→09:56)
[2020-08-28] MEDS ORDERED: PROMETHAZINE INJ 25 MG/ML VIAL (J2550) IV ONE ×2 (01:05→20:05)
[2020-08-28] MEDS ORDERED: BUTORPHANOL 2 MG/ML INJ (J0595) IV ONE ×2 (01:05→20:05)
[2020-08-28] MEDS ORDERED: PENICILLIN G POTASSIUM IV 2.5 MU in IV 1 EA IV SCH (03:15)
[2020-08-28] MEDS ORDERED: PENICILLIN G POTASSIUM IV 5 MU in D5W MINI-BAG PLUS 100 ML IV STA (03:15)
[2020-08-28] MEDS: PENICILLIN G POTASSIUM IV 2.5 MU in IV 1 EA IV SCH ×5 (07:32→23:33)
[2020-08-28] MEDS ORDERED: LR 1,000 ML IV SCH (14:30)
[2020-08-28] MEDS ORDERED: OXYTOCIN DRIP 30 UNITS in IV 1 EA IV SCH (14:30)
--- NOTE | 2020-08-28 14:35 | IPNPDOC ---
Obstetrical Progress Note Date of Service Aug 28, 2020 Subjective Patient reports her hips are sore. She is having a hard time with positioning as she has a morbidly obese abdomen and can only be monitored in one position. Objective Vital Signs Date Time Temp Pulse Resp B/P (MAP) Pulse Ox O2 Delivery O2 Flow Rate FiO2 08/28/20 12:47 90 18 148/78 (101) 08/28/20 12:24 97.1 08/28/20 09:58 99 08/28/20 01:58 Room Air Assessment Heart Rate (FHR): 135 Variability: Moderate Accelerations: Positive Decelerations: None Heart Rate Tracing: Category I Tocometer Contractions: Yes Frequency: irregular Sterile Vaginal Examination Dilation: 2cm Effacement (%): other (75%) Station: -2 Cervical Consistency: Soft Cervical Position: Anterior Postion/Presentation: Cephalic presentation Assessment and Plan Age: 30 EGA at Admission: 39.1 Weeks & Days 39.2 Status: Reassuring Group B Streptococcus: Positive Additional Comments IV Pitocin to be started per order. Reviewed options for positioning including using US to obtain best way to get FHR on EFM if necessary. Reviewed option that if she can't tolerate continuous monitoring that we could also proceed with an e pidural or a section. Patient verbalized she wants to do everything she can to avoid a section. DARLYN HUYNH CNM Aug 28, 2020 14:35
--- NOTE | 2020-08-28 16:50 | IPNPDOC ---
Obstetrical Progress Note Date of Service Aug 28, 2020 Subjective Patient reports feeling her contractions and reports she thinks her water broke. Objective Vital Signs Date Time Temp Pulse Resp B/P (MAP) Pulse Ox O2 Delivery O2 Flow Rate FiO2 08/28/20 14:44 98.9 76 18 132/65 (87) 08/28/20 09:58 99 08/28/20 01:58 Room Air Assessment Heart Rate (FHR): 140 Variability: Moderate Accelerations: Positive Decelerations: None Heart Rate Tracing: Category I Tocometer Contractions: Yes Sterile Vaginal Examination Dilation: 3 cm Effacement (%): other (75%) Station: -2 Cervical Consistency: Soft Postion/Presentation: Cephalic presentation Assessment and Plan Age: 30 : 1 Term: 0 Pre-term: 0 Abortions: 0 Livin EGA at Admission: 39.1 Weeks & Days 39.2 Status: Reassuring Group B Streptococcus: Positive Anticipate: Vaginal Delivery Additional Comments IV Pitocin is at 8 mu/min. Internal monitors placed so patient can move in different positions due to difficulty monitoring baby and contractions from abdominal obesity. FSE and IUPC placed and patient tolerated well. DARLYN HUYNH CNM Aug 28, 2020 16:50
[2020-08-28] MEDS ORDERED: ONDANSETRON 4MG/2ML VIAL IV SCH (18:00)
[2020-08-28] MEDS ORDERED: ONDANSETRON 4MG/2ML VIAL IV PRN (19:10)
[2020-08-29] VITALS (42 sets, daily range): BP systolic 68–164; BP diastolic 39–84; O2SAT 97–99
--- NOTE | 2020-08-29 01:21 | IPNPDOC ---
Obstetrical Progress Note Date of Service Aug 29, 2020 Subjective Reports she is very uncomfortable and requesting an epidural. Objective Vital Signs Date Time Temp Pulse Resp B/P (MAP) Pulse Ox O2 Delivery O2 Flow Rate FiO2 08/28/20 20:19 18 08/28/20 18:46 106 135/86 (102) 08/28/20 18:21 98.7 08/28/20 16:48 98 08/28/20 01:58 Room Air Assessment Heart Rate (FHR): 120 Variability: Moderate Accelerations: Positive Decelerations: None Heart Rate Tracing: Category I Tocometer Contractions: Yes Frequency: regular Sterile Vaginal Examination Dilation: 5 cm Effacement (%): 90% Station: -2 Cervical Consistency: Soft Cervical Position: Anterior Postion/Presentation: Cephalic presentation Assessment and Plan Age: 30 : 1 Term: 0 Pre-term: 0 Abortions: 0 Livin EGA at Admission: 39.2 Weeks & Days 39.3 Status: Reassuring Group B Streptococcus: Positive Additional Comments IV Pitocin at 20 mu/min. Anesthesia notified. DARLYN HUYNH CNM Aug 29, 2020 01:21
[2020-08-29] MEDS ORDERED: FENTANYL 2MCG/ML ROPIVACAINE 0.2% IN 0.9% NACL 100ML IVBAG As Ordered ONE (01:47)
[2020-08-29 01:55] LABS: HEMATOCRIT 34.6 % (36.0-47.0); HEMOGLOBIN 10.7 g/dl (12.0-15.5); MEAN CORPUSCULAR HEMOGLOBIN 23.9 pg (27.0-33.0); MEAN CORPUSCULAR HGB CONC 30.9 g/dl (32.0-36.5); MEAN CORPUSCULAR VOLUME 77.2 fl (80.0-96.0); PLATELET COUNT, AUTOMATED 269 10^3/uL (150-450); RED BLOOD COUNT 4.48 10^6/uL (4.00-5.40); WHITE BLOOD COUNT 15.6 10^3/uL (4.0-10.0)
[2020-08-29] MEDS ORDERED: EPIDURAL/PCA KEYS XX PRN (02:00)
[2020-08-29] MEDS ORDERED: ePHEDrine SULFATE 25 MG/5 ML(5MG/ML) SYRINGE IV PRN (02:00)
[2020-08-29] MEDS ORDERED: LACTATED RINGER'S 1000 ML IV PRN (02:00)
[2020-08-29] MEDS ORDERED: REFRIGERATOR IV KEYS XX PRN (02:00)
[2020-08-29] MEDS ORDERED: EPIDURAL COMMENT XX SCH (02:00)
[2020-08-29] MEDS ORDERED: NALOXONE INJ 0.4MG/1ML VIAL (J2310 PER 1MG) IV PRN (02:00)
[2020-08-29] MEDS ORDERED: diphenhydrAMINE 50MG/ML VIAL (J1200) IV PRN (02:00)
[2020-08-29] MEDS ORDERED: ONDANSETRON 4MG/2ML VIAL IV PRN ×3 (02:00→14:30)
[2020-08-29] MEDS: FENTANYL/ROPIVACAINE/NACL BAG 100 ML EPIDURAL SCH ×2 (02:15→10:36)
[2020-08-29] MEDS: PENICILLIN G POTASSIUM IV 2.5 MU in IV 1 EA IV SCH ×3 (03:30→11:30)
[2020-08-29] MEDS ORDERED: BICITRA 30ML SOLN UDC PO ONE (11:10)
[2020-08-29] MEDS ORDERED: AZITHROMYCIN INJ 500 MG, VIAL MATE ADAPTER 1 EACH in NS 250 ML IV ONE (11:10)
[2020-08-29] MEDS ORDERED: ceFAZolin SOD 3 GM IV Place Holder IV ONE (11:10)
[2020-08-29] MEDS ORDERED: MORPHINE PRES-FREE INJ 10 MG/10 ML VIAL (J2274) As Ordered ONE (11:14)
[2020-08-29] MEDS ORDERED: OXYTOCIN INJ 10 UNITS/ML VIAL (J2590) As Ordered ONE (11:16)
[2020-08-29] MEDS ORDERED: LIDOCAINE 2% W/EPINEPHRINE 20ML VIAL **PRES FREE As Ordered ONE (11:18)
--- NOTE | 2020-08-29 11:22 | IPNPDOC ---
Text Note Date of Service The patient was seen on 08/29/20. NOTE Decision for section I assumed care for pt at 0730 this morning. Nanette is a 30yo with SIUP at 39w3d undergoing IOL, which was started on 08/28. IOL was begun with cytotec and then pitocin was started around noon yesterday. She had SROM at 1600 yesterday. Pitocin was turned off for 2 hours early this morning between 3 and 5am for NRFHT which resolved and then pitocin was titrated up again. She has FSE and IUPC in place and we have struggled to get her to adequate MVUs with titrating up on pitocin, currently at 18mu. Her SCE was 6/80/-2 at 0500 this morning and I repeated SCE just before 0900, when I felt that she was 5/80/-2, fluid still clear. We discussed possibility of section if she did not make good cervical change or if she developed NRFHT again. Patient and her mother and spouse discussed and we agreed that if she made no further change of the next 2 hours (or developed NRFHT), we would proceed with section. At 1100 I rechecked her and SCE is 5-6/80/-2 with no descent made. There have been occasional FHR decels but nothing persistent or progressive and there are accels and mod variability. Patient's vitals are wnl. -Consented patient for PLTCS and blood transfusion (if needed), discussed all r/b/a -Patient has history of Crohn's disease and prior related bowel surgeries to include drainage of intra-abdominal abscess, so we specifically discussed the possibility of encountering extensive scar tissue. Plan is to perform in L&D OR and if necessary will call General Surgery up to assist. Dr. Walker will assist me with the section -3g IV anceph and 500mg IV azithromycin pre-op -Bicitra -Pitocin turned off -Team aware of plan and will proceed to OR when all parties ready MD BOAZ Sun,Fabby, I+O Fabby SANDRA I+O Laboratory Tests 08/29/20 01:44 Vital Signs Date Time Temp Pulse Resp B/P (MAP) Pulse Ox O2 Delivery O2 Flow Rate FiO2 08/29/20 09:31 98.0 95 17 110/54 (72) 100 08/28/20 01:58 Room Air I&O- Last 24 Hours up to 6 AM 08/29/20 06:00 Intake Total 4127 ml Output Total 1082 ml Balance 3045 ml Meera Whatley MD Aug 29, 2020 11:22
[2020-08-29] MEDS ORDERED: ceFAZolin 2 GM/D5W 50 ML IV BAG (J0690 PER 500MG) As Ordered ONE (11:25)
[2020-08-29] MEDS ORDERED: ceFAZolin 1GM VIAL (J0690 PER 500MG) As Ordered ONE (11:25)
[2020-08-29] MEDS ORDERED: AZITHROMYCIN INJ 500MG VIAL (J0456 PER 500MG) As Ordered ONE (11:26)
[2020-08-29] MEDS ORDERED: BICITRA 30ML SOLN UDC As Ordered ONE (11:32)
[2020-08-29] MEDS ORDERED: ceFAZolin SOD 1 GM in D5W MINI-BAG PLUS 50 ML IV ONE (11:35)
[2020-08-29] MEDS ORDERED: ceFAZolin SOD 2 GM in IV 1 EA IV ONE (11:35)
[2020-08-29] MEDS ORDERED: ONDANSETRON 4MG/2ML VIAL As Ordered ONE (13:03)
[2020-08-29] MEDS ORDERED: dexameTHASONE 4 MG/ML 1ML VIAL (J1100 PER 1MG) As Ordered ONE (13:03)
[2020-08-29] MEDS ORDERED: PHENYLephrine 500MCG 5ML (100MCG/ML) SYRINGE As Ordered ONE (13:26)
[2020-08-29] MEDS ORDERED: KETOROLAC 60MG 2ML VIAL As Ordered ONE (13:41)
[2020-08-29] MEDS ORDERED: RHOGAM 300 MCG (1500 IU) INJ (J2790) IM SCH (13:55)
[2020-08-29] MEDS ORDERED: OXYTOCIN DRIP 30 UNITS in IV 1 EA IV SCH (13:55)
[2020-08-29] MEDS ORDERED: PERCOCET 5MG/325MG TAB PO PRN ×3 (13:55→14:30)
[2020-08-29] MEDS ORDERED: METHYLERGONOVINE MALEATE 0.2 MG/ML VIAL (J2210) IM ONE (13:55)
[2020-08-29] MEDS ORDERED: MEASLES,MUMPS,RUBELLA VACCINE INJ (MMR-II) (90707) SC SCH (13:55)
[2020-08-29] MEDS ORDERED: SIMETHICONE 80MG CHEW TAB PO PRN (13:55)
[2020-08-29] MEDS ORDERED: IBUP80TA PO (14:06)
[2020-08-29] MEDS ORDERED: PERCOCET PO (14:06)
[2020-08-29] MEDS ORDERED: DOK1CAP7 PO (14:06)
[2020-08-29] MEDS ORDERED: OXYTOCIN 30 UNITS IN 0.9% NaCl 500ML IV BAG (J2590) As Ordered ONE (14:21)
[2020-08-29] MEDS ORDERED: METOCLOPRAMIDE INJ 10MG/2ML VIAL (J2765 PER 1) IV PRN (14:30)
[2020-08-29] MEDS ORDERED: LR 1,000 ML IV SCH (14:30)
--- NOTE | 2020-08-29 14:44 | RO ---
OPERATIVE NOTE DATE OF OPERATION: 08/29/2020 PREOPERATIVE DIAGNOSES: 1. Elective induction of labor at 39 weeks. 2. Arrest of dilation with inability to augment. 3. History of Crohn's disease with bowel surgeries and drainage of intraabdominal abscesses. 4. BMI of 49 on admission. POSTOPERATIVE DIAGNOSES: 1. Elective induction of labor at 39 weeks. 2. Arrest of dilation with inability to augment. 3. History of Crohn's disease with bowel surgeries and drainage of intraabdominal abscesses. 4. BMI of 49. 5. Delivered. PROCEDURE: Vacuum-assisted primary low transverse section. SURGEON: Meera Whatley MD STATION WORKER: Dr. Montez Walker CLINICAL SERVICE: Obstetrics. ANESTHESIA: INDICATION FOR OPERATION: Nanette is a 30-year-old, G1, now P1,0,0,1, who was undergoing induction of labor elective at 39 weeks gestation. She progressed with Pitocin augmentation to 680, -2 but made no further progress beyond that and continued efforts to titrate up Pitocin for adequate MVUs led to heart rate decelerations. I recommended section at that point for arrest of dilation, inability to augment and the patient was amenable. MATERIAL FORWARDED TO THE LAB FOR EXAMINATION: None. DESCRIPTION OF FINDINGS: Male in cephalic presentation, OT and asynclitic, Apgars 8 and 9, weight 3220 gm or 7 pounds, 2 ounces. Normal appearing uterus, fallopian tubes and ovaries. There was adhesion at the small intestine to the anterior abdominal wall above the superior aspect of the peritoneal incision. INFECTION CLASSIFICATION: 2. ESTIMATED BLOOD LOSS: 800 mL URINE OUTPUT: 100 mL clear yellow urine. IV FLUIDS: 1400 mL of lactated Ringer's. DESCRIPTION OF PROCEDURE: After obtaining informed consent, the patient was taken to the operating room. She had already received an epidural which was bolused and Perkins catheter and bilateral sequential compression devices were in place. She was prepped and draped in normal sterile fashion in the dorsal supine position with a left lateral tilt. The traxi was used to lift up the pannus. She received 3 gm of IV Ancef and 500 mg of IV Azithromycin for prophylaxis. Time out was performed to confirm patient name, date of , procedure and indication and the team was in agreement. Epidural anesthesia was found to be adequate using an Allis clamp. A Pfannenstiel skin incision was made with the scalpel and carried through to the underlying layer of fascia. The fascia was incised in the midline and the incision was extended laterally with Fisher scissors. Superior and inferior aspects of the fascial incision were grasped with Fabrizio clamps, elevated and the underlying rectus muscles were dissected off bluntly and sharply. The peritoneum was entered digitally and the rectus muscles were in the midline. The peritoneal incision was extended superiorly and inferiorly with good visualization of the bladder. Again, the small bowel was adhered approximately 3-4 cm superior to the most superior aspect of our peritoneal incision. Otherwise, there were no other adhesions in the area that we were working in. Bladder blade was inserted. The vesicouterine peritoneum was identified, grasped with pickups and entered sharply with Metzenbaum scissors. Incision was extended laterally and bladder flap was created digitally. Bladder blade was reinserted and the lower uterine segment was scored in the transverse fashion with a scalpel. The uterus was entered bluntly and the incision was extended with traction. Clear fluid was noted. Bladder blade was removed and 's head was elevated to the level of the incision. However, it was not able to be delivered without assistance of the vacuum so that was placed on the most posterior aspect of the head and suction was activated into the green zone. With one pull and fundal pressure the head delivered then atraumatically in the OT position slightly asynclitic. Anterior shoulder, posterior shoulder and corpus were delivered without difficulty. The nose and mouth were suctioned with bulb suction and cord was clamped x2 and cut. The infant was handed off to the awaiting nursing team. Placenta was removed manually and uterus was exteriorized and cleared of all clot and debris. We noted extension of the hysterotomy on the right side inferiorly so incision was sutured starting on that side. Dr. Walker assisted me with this. The uterine incision was repaired with #0 Vicryl suture in a running locking fashion. A second layer of #0 Monocryl was used to close the hysterotomy incision in an imbricating fashion. The uterine incision was inspected. Hemostasis was noted at that point. Posterior cul-de-sac was irrigated, uterus returned to the abdomen. Gutters were cleared of all clots and hemostasis was noted. We re-inspected the hysterotomy and we noted that there was a small area still bleeding on the right side of the hysterotomy so single suture was used to gain complete hemostasis at that point and there was no further bleeding. Gilma was applied along the incision line. The peritoneum was closed using 3-0 Vicryl suture in running fashion. Rectus muscles needed no reapproximation. Fascia was reapproximated with #0 Vicryl suture in a running fashion. The subcutaneous tissue was copiously irrigated. Leora's fascia was reapproximated using 3-0 Vicryl suture in a running fashion in two layers. Skin edges were reapproximated using running subcuticular stitch with 4-0 Monocryl suture. I had anesthesia give the patient a dose of 0.2 mg I.M. Methergine right after we started closing the hysterotomy because the uterus was noted to be fairly boggy. She also received IV Pitocin bolus per protocol. After receiving the Pitocin and Methergine she had great fundal tone. The incision was cleaned using a wet lap, dried with a dry lap. Steri-Strips were applied in the usual fashion perpendicular to the Pfannenstiel incision. Optifoam dressing was applied overlying. The vagina was cleared of all blood clot without active bleeding noted. The fundus was firm at U minus 2 cm. Sponge, lap and needle counts were correct x2. The procedure was without complications. The patient tolerated the procedure well. She was taken to the recovery room on labor and delivery in stable condition.
[2020-08-29] MEDS ORDERED: fentaNYL 100 MCG/2 ML INJECTION (J3010) As Ordered ONE (15:07)
[2020-08-29] MEDS: fentaNYL 100 MCG/2 ML INJECTION (J3010) IV PRN ×4 (15:15→16:00)
[2020-08-29] MEDS: LR 1,000 ML IV SCH (20:31)
[2020-08-29] MEDS: KETOROLAC 30 MG/ML 1ML VIAL IV SCH (20:31)
[2020-08-29] MEDS: DOCUSATE SODIUM 100MG CAPSULE PO SCH (20:31)
[2020-08-30] VITALS (7 sets, daily range): BP systolic 125–147; BP diastolic 66–81; O2SAT 96
[2020-08-30] MEDS: KETOROLAC 30 MG/ML 1ML VIAL IV SCH ×2 (02:29→08:46)
[2020-08-30] MEDS: LR 1,000 ML IV SCH ×3 (04:24→21:55)
[2020-08-30 07:05] LABS: HEMATOCRIT 24.6 % (36.0-47.0); MEAN CORPUSCULAR HEMOGLOBIN 23.9 pg (27.0-33.0); MEAN CORPUSCULAR HGB CONC 30.5 g/dl (32.0-36.5); MEAN CORPUSCULAR VOLUME 78.3 fl (80.0-96.0); PLATELET COUNT, AUTOMATED 184 10^3/uL (150-450); RED BLOOD COUNT 3.14 10^6/uL (4.00-5.40); WHITE BLOOD COUNT 7.1 10^3/uL (4.0-10.0)
[2020-08-30 07:08] LABS: HEMOGLOBIN 7.5 g/dl (12.0-15.5)
[2020-08-30] MEDS: DOCUSATE SODIUM 100MG CAPSULE PO SCH ×2 (08:46→20:08)
[2020-08-30] MEDS: PRENATAL VITAMINS CHEWABLE TABLET PO SCH (08:46)
--- NOTE | 2020-08-30 09:32 | IPNPDOC ---
Progress Note Date of Service: Aug 30, 2020 Day#: 1 Progress Note PPD/POD 1 SUBJECT: Nanette is a 30yo [id number] s/p uncomplicated PLTCS on 08/29 for arrest of dilation with inability to augment, doing well /post-op day #1. Her hx is significant for Crohn's disease with prior bowel surgeries and intra-abdominal abscesses as well as obesity. She has been ambulating, voiding spontaneously without issue and tolerating regular diet. Breast feeding without issue. Reports lochia is like a normal period. Pain well controlled. No f/c/n/v/CP/SOB. OBJECTIVE: VITAL SIGNS: Within normal limits, afebrile. Alert and oriented times three. Abdomen: Fundus firm at U-2. Obese. Soft, appropriately tender to palpation. Optifoam dressing overlies pfannenstiel incision and is clean/dry/intact Extremities: no pain with palpation of calves Labs: pre-op H/H: 10.7/34.6 post-op H/H: 7.5/24.6 ASSESSMENT: Nanette is a 30yo [id number] s/p uncomplicated PLTCS on 08/29 for arrest of dilation with inability to augment, doing well /post-op day #1. Vitals within normal limits, afebrile, hemodynamically stable with no evidence of infection. PLAN: 1. Routine /post-op care 2. Percocet and Motrin for pain. Colace for bowel regimen 3. Encourage breast feeding and ambulation. 4. Regular diet 5. Possible discharge tomorrow if meeting all milestones Meera Whatley MD VS, I&O, 24H, [facility] Vital Signs/I&O Vital Signs Date Time Temp Pulse Resp B/P (MAP) Pulse Ox O2 Delivery O2 Flow Rate FiO2 08/30/20 06:00 97.6 86 17 125/69 (87) 98 Room Air I&O- Last 24 Hours up to 6 AM 08/30/20 06:00 Intake Total 5103 ml Output Total 3480 ml Balance 1623 ml Laboratory Data 24H LABS Laboratory Tests 2 08/30/20 06:43: Nucleated Red Blood Cells % (auto) 0.0 CBC/BMP Laboratory Tests 08/30/20 06:43 Meera Whatley MD Aug 30, 2020 09:32
[2020-08-30] MEDS: IBUPROFEN 800 MG TAB PO SCH ×2 (15:59→23:54)
[2020-08-31 02:00] VITALS: BP 136/86
[2020-08-31 06:00] VITALS: BP 152/80
--- NOTE | 2020-08-31 07:31 | DS.PDOC ---
Discharge Summary General Date of Admission Aug 27, 2020 at 12:06 Date of Discharge Aug 31, 2020 Discharge Summary PROCEDURES PERFORMED DURING STAY: ADMITTING DIAGNOSES: 1. 39 weeks, labor induction. DISCHARGE DIAGNOSES: 1. Same. COMPLICATIONS/CHIEF COMPLAINT: IOL. HISTORY OF PRESENT ILLNESS: 30-year-old 1 at 39 weeks gestation presents for labor induction. The patient has a history of Crohn's disease with multiple abdominal surgeries. HOSPITAL COURSE: 30-year-old 1 at 39 weeks gestation presents for labor induction. The patient has a history of Crohn's disease with multiple abdominal surgeries. On August 27, 2020 the patient was made for labor induction. She received misoprostol for several doses. She subsequently had an intracervical catheter placed. She is eventually diagnosed with arrest of dilation. On August 28, 2020 she underwent primary section. The procedure was without complication. The procedure was notable for adhesions of small bowel to the anterior abdominal wall 3 to 4 cm above the incision site. Her postoperative course was unremarkable. She had adequate return of bladder bowel function. Her postoperative hemoglobin was 7.5 g/dL. She was deemed stable for discharge on postoperative day #2. DISCHARGE MEDICATIONS: Please see below. ALLERGIES: Please see below. PHYSICAL EXAMINATION ON DISCHARGE: VITAL SIGNS: Please see below. GENERAL: No apparent distress HEENT: NCAT CARDIOVASCULAR EXAMINATION: RRR RESPIRATORY EXAMINATION: Clear to auscultate ABDOMINAL EXAMINATION: Nontender, fundus firm, incision clean dry intact EXTREMITIES: Nontender LABORATORY DATA: Please see below. PROGNOSIS: Good ACTIVITY: As tolerated. DIET: Regular DISCHARGE PLAN: Home DISPOSITION: . DISCHARGE INSTRUCTIONS: 1. Discharge home today. 2. Instructions reviewed 3. Pain management ordered 4. Follow-up office 2 weeks DISCHARGE CONDITION: Stable. TIME SPENT ON DISCHARGE: Greater than 10 minutes. Vital Signs/I&Os Vital Signs Date Time Temp Pulse Resp B/P (MAP) Pulse Ox O2 Delivery O2 Flow Rate FiO2 08/31/20 06:00 97.3 96 17 152/80 (104) 08/31/20 02:00 96 Room Air Discharge Medications Scheduled Docusate Sodium (Dok) 100 Mg Capsule, 100 MG PO BID Ibuprofen (Ibuprofen) 800 Mg Tablet, 800 MG PO Q8H No.137/Iron/Folic Acd ( Vitamin Tablet) 1 Each Tablet, 1 TAB PO DAILY, (Reported) Vitamin D3/Folic Acid (Noxifol-D3 2,500 Unit-1 mg Tab) 2,500 Unit Tablet, 1 TAB PO DAILY, (Reported) Scheduled PRN Calcium Carbonate (Tums) 300 Mg Tab.chew, 750 MG PO TIDP PRN for HEARTBURN, (Reported) Oxycodone/Acetaminophen (Oxycodone-Acetaminophen 5-325) 1 Each Tablet, 2 TAB PO Q6H PRN for SEVERE PAIN (PS 8-10) Miscellaneous Medications Ustekinumab (Stelara) 90 Mg/1 Ml Syringe, 1 ML SUBQ, (Reported) Allergies Coded Allergies: Cat Dander (Unverified Allergy, Unknown, 02/26/18) Dust (Verified Allergy, Unknown, 01/15/19) Sulfa (Sulfonamide Antibiotics) (Verified Adverse Reaction, Mild, N/V, 01/15/19) PRASHANTH ROMAN MD Aug 31, 2020 07:31
[2020-08-31] MEDS: IBUPROFEN 800 MG TAB PO SCH (08:06)
[2020-08-31] MEDS: PRENATAL VITAMINS CHEWABLE TABLET PO SCH (08:06)
[2020-08-31] MEDS: DOCUSATE SODIUM 100MG CAPSULE PO SCH (09:00)
[2020-08-31] MEDS ORDERED: OXYC1TAB23 PO (16:52)
[2020-08-31] MEDS ORDERED: IBUP-1022 PO (16:54)
== END 2020-08-31 13:22 | disposition home or self-care (01) | DRG 540 ==
LOC: M LDI 12:06 → M OBS 08-29 14:51
PROVIDERS: ADMIT Specialist; ATTEND Specialist
PROC: 3E0DXGC Introduction of Other Therapeutic Substance into Mouth and Pharynx, External Approach (ICD-10-PCS; 2020-08-27)
PROC: 10D07Z6 Extraction of Products of Conception, Vacuum, Via Natural or Artificial Opening (ICD-10-PCS; 2020-08-29)
PROC: 10D00Z1 Extraction of Products of Conception, Low, Open Approach (ICD-10-PCS; principal; 2020-08-29 13:16)
DX: O62.0 Primary inadequate contractions (principal); Z68.42 Body mass index [BMI] 45.0-49.9, adult; E66.01 Morbid (severe) obesity due to excess calories; O99.214 Obesity complicating childbirth; Z37.0 Single live birth; Z3A.39 39 weeks gestation of pregnancy; Z88.2 Allergy status to sulfonamides

== ENCOUNTER → 2020-12-08 | Outpatient (CLI) | payer BC ==
[~2020-12-08] MED LIST changes: +DOK1CAP4 PO; +IBUP-1022 PO; +IBUP80TA PO; +OXYC1TAB23 PO; +PERCOCET PO
== END ==
LOC: M LAB 13:39
PROVIDERS: ATTEND Student in an Organized Health Care Education/Training Program
DX: K50.80 Crohn's disease of both small and large intestine without complications (principal); D50.0 Iron deficiency anemia secondary to blood loss (chronic)

== ENCOUNTER → 2020-12-09 | Outpatient (REF) | payer BC | LOC: M LAB REF 08:10 | PROVIDERS: ATTEND Student in an Organized Health Care Education/Training Program | DX: K50.80 Crohn's disease of both small and large intestine without complications (principal); D50.0 Iron deficiency anemia secondary to blood loss (chronic) ==

== ENCOUNTER → 2021-01-12 | Outpatient (CLI) | payer BC ==
--- NOTE | 2021-01-12 16:33 | REP ---
INDICATION: SURVEILLANCE OF IUD. COMPARISON: None. TECHNIQUE: Transabdominal and transvaginal scanning performed. FINDINGS: The study is limited due to patient body habitus and residual fluid in the bladder on endovaginal imaging. Uterine dimensions are 10.5 x 4.6 x 3.3 cm. The endometrium is not well-defined and not well visualized, approximate visualized thickness is 3 cm. There appears to be complex fluid in the endometrial canal. The IUD is grossly within the endometrial canal. The bladder measures 10.6 x 6.4 x 8.1cm. The right ovary has dimensions of 2.6 x 1.8 x 3.1 cm. It's Doppler flow is normal with a resistive index of 0.8. The left ovary dimensions are 2.9 x 1.3 x 2.4 cm. It's Doppler flow was normal with resistive index of 0.7. There is no adnexal mass identified. No free fluid is seen in the cul-de-sac. IMPRESSION: Limited exam due to patient body habitus and residual fluid in the bladder on endovaginal imaging. The endometrium is not well defined and not well evaluated. There appears to be complex fluid in the endometrial canal. The IUD is grossly within the endometrial canal. <Electronically signed by Brice Garcia > 01/12/21 [id number]
== END ==
LOC: M WHC 12:19
PROVIDERS: ATTEND Obstetrics & Gynecology
DX: Z30.431 Encounter for routine checking of intrauterine contraceptive device (principal)

== ENCOUNTER → 2021-12-31 | Outpatient (CLI) | payer OTHER ==
[~2021-12-31] MED LIST changes: +FLUO-96 PO; -FLUO20CA20 PO
[2021-12-31 14:33] LABS: BASO # 0.1 10^3/uL (0.0-0.2); BASO % 1.1 % (0.0-1.0); EOS # 0.5 10^3/uL (0.0-0.5); EOS % 5.3 % (0.0-3.0); HEMATOCRIT 29.8 % (36.0-47.0); HEMOGLOBIN 8.2 g/dl (12.0-15.5); LYMPH # 1.9 10^3/uL (1.5-5.0); LYMPH % 22.3 % (24.0-44.0); MEAN CORPUSCULAR HEMOGLOBIN 19.1 pg (27.0-33.0); MEAN CORPUSCULAR HGB CONC 27.5 g/dl (32.0-36.5); MEAN CORPUSCULAR VOLUME 69.3 fl (80.0-96.0); MONO # 0.5 10^3/uL (0.0-0.8); MONO % 6.1 % (2.0-8.0); NEUTROPHILS # 5.6 10^3/uL (1.5-8.5); NEUTROPHILS % 64.8 % (36.0-66.0); PLATELET COUNT, AUTOMATED 316 10^3/uL (150-450); WHITE BLOOD COUNT 8.6 10^3/uL (4.0-10.0)
[2021-12-31 15:11] LABS: ERYTHROCYTE SEDIMENTATION RATE 42 mm/hr (0-20)
[2021-12-31 15:38] LABS: ALBUMIN 3.2 GM/DL (3.2-5.2); ALT/SGPT 22 U/L (12-78); BILIRUBIN,DIRECT < 0.1 MG/DL (0.0-0.2); BILIRUBIN,TOTAL 0.3 MG/DL (0.2-1.0); C REACTIVE PROTEIN QUANTITATIV 1.98 MG/DL (0.00-0.30); FERRITIN 3 NG/ML (8-252); IRON (FE) 16 UG/DL (50-170); TOTAL PROTEIN 6.8 GM/DL (6.4-8.2)
[2021-12-31 16:05] LABS: TOTAL 25(OH) VITAMIN D 15.1 NG/ML (30.0-100.0); VITAMIN B12 LEVEL 433 PG/ML (247-911)
== END ==
LOC: M LAB 12:52
PROVIDERS: ATTEND Student in an Organized Health Care Education/Training Program
DX: K42.9 Umbilical hernia without obstruction or gangrene (principal); K50.80 Crohn's disease of both small and large intestine without complications; Z79.899 Other long term (current) drug therapy; D50.0 Iron deficiency anemia secondary to blood loss (chronic)

== ENCOUNTER → 2022-01-01 | Outpatient (REF) | payer OTHER | LOC: M LAB REF 09:52 | PROVIDERS: ATTEND Student in an Organized Health Care Education/Training Program | DX: K50.80 Crohn's disease of both small and large intestine without complications (principal); D50.0 Iron deficiency anemia secondary to blood loss (chronic); Z79.899 Other long term (current) drug therapy; K42.9 Umbilical hernia without obstruction or gangrene ==

== ENCOUNTER → 2022-07-11 | Outpatient (CLI) | payer OTHER ==
[2022-07-11 18:13] LABS: BASO # 0.1 10^3/uL (0.0-0.2); BASO % 1.2 % (0.0-1.0); EOS # 0.6 10^3/uL (0.0-0.5); EOS % 8.9 % (0.0-3.0); HEMATOCRIT 30.4 % (36.0-47.0); HEMOGLOBIN 8.4 g/dl (12.0-15.5); LYMPH # 1.7 10^3/uL (1.5-5.0); MEAN CORPUSCULAR HGB CONC 27.6 g/dl (32.0-36.5); MEAN CORPUSCULAR VOLUME 68.9 fl (80.0-96.0); MONO # 0.4 10^3/uL (0.0-0.8); MONO % 5.9 % (2.0-8.0); NEUTROPHILS # 3.9 10^3/uL (1.5-8.5); NEUTROPHILS % 58.7 % (36.0-66.0); PLATELET COUNT, AUTOMATED 278 10^3/uL (150-450); RED BLOOD COUNT 4.41 10^6/uL (4.00-5.40); WHITE BLOOD COUNT 6.7 10^3/uL (4.0-10.0)
[2022-07-11 18:35] LABS: C REACTIVE PROTEIN QUANTITATIV 1.7 MG/DL (<1.0)
[2022-07-11 18:36] LABS: ALBUMIN 3.6 G/DL (3.2-5.2); BILIRUBIN,DIRECT 0.2 MG/DL (<0.4); BILIRUBIN,TOTAL 0.4 MG/DL (0.3-1.2); TOTAL PROTEIN 6.5 G/DL (5.7-8.2)
[2022-07-11 18:38] LABS: TOTAL 25(OH) VITAMIN D 21.4 NG/ML (20.0-100.0)
[2022-07-11 18:39] LABS: FERRITIN 3.8 NG/ML (7.3-270.7); THYROID STIMULATING HORMONE 2.42 uIU/ML (0.55-4.78)
[2022-07-11 18:57] LABS: ERYTHROCYTE SEDIMENTATION RATE 25 mm/hr (0-20)
== END ==
LOC: M LAB 16:35
PROVIDERS: ATTEND Student in an Organized Health Care Education/Training Program
DX: K50.80 Crohn's disease of both small and large intestine without complications (principal); Z79.899 Other long term (current) drug therapy; D50.9 Iron deficiency anemia, unspecified

== ENCOUNTER 2022-07-26 10:24 | Outpatient (CLI) | payer OTHER ==
[2022-07-26 10:35] VITALS: BP 127/77
[2022-07-26] MEDS ORDERED: FERRIC CARBOXYMALTOSE INJ 750 MG in NS 250 ML (>50kg) IV ONE ×3 (10:45)
== END 2022-07-26 12:15 | disposition home or self-care (01) ==
LOC: M INFU 10:24
PROVIDERS: ATTEND Physician Assistant
DX: D50.9 Iron deficiency anemia, unspecified (principal); Z88.1 Allergy status to other antibiotic agents; Z91.048 Other nonmedicinal substance allergy status
CPT/HCPCS: 96365; J1439

== ENCOUNTER 2022-08-02 14:40 | Outpatient (CLI) | payer OTHER ==
[2022-08-02 14:53] VITALS: BP 136/85
[2022-08-02] MEDS ORDERED: FERRIC CARBOXYMALTOSE INJ 750 MG in NS 250 ML (>50kg) IV ONE ×3 (15:00)
[2022-08-02 15:53] VITALS: BP 122/77
[2022-08-02 16:00] VITALS: BP 122/77
== END 2022-08-02 16:00 ==
LOC: M INFU 14:40
PROVIDERS: ATTEND Physician Assistant
DX: D50.9 Iron deficiency anemia, unspecified (principal); Z88.2 Allergy status to sulfonamides; Z91.048 Other nonmedicinal substance allergy status
CPT/HCPCS: 96365; J1439

== ENCOUNTER → 2022-09-13 | Outpatient (REF) | payer OTHER | LOC: M LAB REF 15:10 | PROVIDERS: ATTEND Physician Assistant | DX: R30.0 Dysuria (principal) ==

== ENCOUNTER → 2022-09-25 | Outpatient (CLI) | payer OTHER ==
[2022-09-25 14:49] LABS: BASO # 0.1 10^3/uL (0.0-0.2); BASO % 0.8 % (0.0-1.0); EOS # 0.3 10^3/uL (0.0-0.5); EOS % 3.2 % (0.0-3.0); HEMATOCRIT 35.8 % (36.0-47.0); HEMOGLOBIN 11.4 g/dl (12.0-15.5); LYMPH # 1.6 10^3/uL (1.5-5.0); LYMPH % 18.9 % (24.0-44.0); MEAN CORPUSCULAR HEMOGLOBIN 25.4 pg (27.0-33.0); MEAN CORPUSCULAR HGB CONC 31.8 g/dl (32.0-36.5); MEAN CORPUSCULAR VOLUME 79.9 fl (80.0-96.0); MONO # 0.4 10^3/uL (0.0-0.8); MONO % 5.1 % (2.0-8.0); NEUTROPHILS # 5.9 10^3/uL (1.5-8.5); NEUTROPHILS % 71.6 % (36.0-66.0); PLATELET COUNT, AUTOMATED 272 10^3/uL (150-450); RED BLOOD COUNT 4.48 10^6/uL (4.00-5.40); WHITE BLOOD COUNT 8.3 10^3/uL (4.0-10.0)
[2022-09-25 14:52] LABS: APPEARANCE, URINE HAZY (CLEAR); BACTERIA, URINE AUTO 1+ (NEGATIVE); BILIRUBIN, URINE AUTO NEGATIVE (NEGATIVE); BLOOD, URINE BLOOD 2+ (NEGATIVE); COLOR, URINE YELLOW (YELLOW); GLUCOSE, URINE (UA) AUTO NEGATIVE (NEGATIVE); KETONE, URINE AUTO TRACE mg/dL (NEGATIVE); LEUKOCYTE ESTERASE, URINE AUTO 3+ (NEGATIVE); MUCUS, URINE SMALL (NEGATIVE); NITRITE, URINE AUTO NEGATIVE (NEGATIVE); PROTEIN, URINE AUTO 1+ mg/dL (NEGATIVE); RBC, URINE AUTO 3 /HPF (0-3); SPECIFIC GRAVITY URINE AUTO 1.024 (1.002-1.035); SQUAMOUS EPITHELIAL CELL UR AU 11 /HPF (0-6); UROBILINOGEN, URINE AUTO 0.2 mg/dL (0.0-2.0); WBC, URINE AUTO 6 /HPF (0-3)
[2022-09-25 15:17] LABS: IRON (FE) 25 UG/DL (50-170); PERCENT SATURATION 8.5 % (13.2-45.0); TOTAL IRON BINDING CAPACITY 294 UG/DL (250-425)
[2022-09-25 15:18] LABS: ALBUMIN 3.4 G/DL (3.2-5.2); ALKALINE PHOSPHATASE 96 U/L (46-116); ALT/SGPT 17 U/L (7.0-40); AST/SGOT < 8 U/L (<34); BILIRUBIN,TOTAL 0.5 MG/DL (0.3-1.2); BLOOD UREA NITROGEN 9 MG/DL (9-23); CALCIUM LEVEL 8.9 MG/DL (8.5-10.1); CARBON DIOXIDE LEVEL 27 MMOL/L (20-31); CHLORIDE LEVEL 104 MMOL/L (98-107); GLOMERULAR FILTRATION RATE > 60.0 (>60); GLUCOSE, FASTING 73 MG/DL (60-100); POTASSIUM SERUM 4.2 MMOL/L (3.5-5.1); SODIUM LEVEL 139 MMOL/L (136-145); TOTAL PROTEIN 6.6 G/DL (5.7-8.2); VITAMIN B12 LEVEL 500 PG/ML (211-911)
[2022-09-25 15:19] LABS: FERRITIN 26.1 NG/ML (7.3-270.7); FOLATE 10.7 NG/ML (>5.4); TOTAL 25(OH) VITAMIN D 29.3 NG/ML (20.0-100.0)
== END ==
LOC: M LAB 14:06
PROVIDERS: ATTEND Physician Assistant
DX: D50.9 Iron deficiency anemia, unspecified (principal); K50.111 Crohn's disease of large intestine with rectal bleeding; Z79.899 Other long term (current) drug therapy

== ENCOUNTER → 2022-12-31 | Outpatient (CLI) | payer OTHER | LOC: M WUC 15:31 | PROVIDERS: ATTEND Student in an Organized Health Care Education/Training Program | DX: K50.80 Crohn's disease of both small and large intestine without complications (principal) ==

== ENCOUNTER → 2023-03-14 | Outpatient (CLI) | payer OTHER | LOC: M WHC 15:32 | PROVIDERS: ATTEND Obstetrics & Gynecology | DX: R10.2 Pelvic and perineal pain (principal); Z97.5 Presence of (intrauterine) contraceptive device ==

== ENCOUNTER → 2023-06-13 | Outpatient (CLI) | payer OTHER | LOC: M RAD 14:44 | PROVIDERS: ATTEND Physician Assistant | DX: R13.19 Other dysphagia (principal); E04.2 Nontoxic multinodular goiter ==

== ENCOUNTER 2023-08-06 02:54 | Emergency (ER) | payer OTHER ==
[~2023-08-06] VITALS: Ht 170.2 cm; Wt 133.7 kg
[2023-08-06 03:54] LABS: BASO # 0.1 10^3/uL (0.0-0.2); BASO % 0.8 % (0.0-1.0); EOS # 0.4 10^3/uL (0.0-0.5); EOS % 4.5 % (0.0-3.0); HEMATOCRIT 29.2 % (36.0-47.0); HEMOGLOBIN 7.9 g/dl (12.0-15.5); LYMPH # 1.3 10^3/uL (1.5-5.0); LYMPH % 16.1 % (24.0-44.0); MEAN CORPUSCULAR HEMOGLOBIN 17.6 pg (27.0-33.0); MEAN CORPUSCULAR HGB CONC 27.1 g/dl (32.0-36.5); MEAN CORPUSCULAR VOLUME 64.9 fl (80.0-96.0); MONO # 0.4 10^3/uL (0.0-0.8); MONO % 4.6 % (2.0-8.0); NEUTROPHILS # 6.1 10^3/uL (1.5-8.5); NEUTROPHILS % 73.8 % (36.0-66.0); PLATELET COUNT, AUTOMATED 320 10^3/uL (150-450); WHITE BLOOD COUNT 8.3 10^3/uL (4.0-10.0)
[2023-08-06 04:13] LABS: LIPASE 29 U/L (12-53)
[2023-08-06 04:16] LABS: ALBUMIN 3.2 G/DL (3.2-5.2); ALKALINE PHOSPHATASE 95 U/L (46-116); ALT/SGPT 18 U/L (7.0-40); AST/SGOT < 8 U/L (<34); BILIRUBIN,DIRECT 0.1 MG/DL (<0.4); BILIRUBIN,TOTAL 0.4 MG/DL (0.3-1.2); BLOOD UREA NITROGEN 13 MG/DL (9-23); CALCIUM LEVEL 8.6 MG/DL (8.5-10.1); CARBON DIOXIDE LEVEL 26 MMOL/L (20-31); CHLORIDE LEVEL 109 MMOL/L (98-107); CREATININE FOR GFR 0.77 MG/DL (0.55-1.30); GLOMERULAR FILTRATION RATE > 60.0 (>60); GLUCOSE, FASTING 125 MG/DL (60-100); HCG, SERUM QUALITATIVE NEGATIVE (NEGATIVE); POTASSIUM SERUM 3.8 MMOL/L (3.5-5.1); SODIUM LEVEL 141 MMOL/L (136-145); TOTAL PROTEIN 6.4 G/DL (5.7-8.2)
[2023-08-06] MEDS: KETOROLAC 30 MG/ML 1ML VIAL IV ONE (05:50)
[2023-08-06] MEDS: ONDANSETRON 4MG 2ML VIAL IV ONE (05:50)
[2023-08-06] MEDS: GASTROGRAFIN SOLUTION 30ML PO SCH (06:03)
[2023-08-06] MEDS ORDERED: ISOVUE-370 76% 100ML VIAL As Ordered ONE (08:14)
[2023-08-06] MEDS ORDERED: ERGO500029 (09:39)
[2023-08-06] MEDS ORDERED: BUPR-597 (09:39)
[2023-08-06] MEDS ORDERED: TOPI-21 (09:39)
[2023-08-06] MEDS ORDERED: FERR325T3 PO (09:40)
[2023-08-06 12:10] VITALS: BP 121/81; TEMP 97.3; O2SAT 99
== END 2023-08-06 12:17 | disposition home or self-care (01) ==
LOC: M ED 02:54
DX: K50.90 Crohn's disease, unspecified, without complications (principal); K21.9 Gastro-esophageal reflux disease without esophagitis; F12.10 Cannabis abuse, uncomplicated; F10.10 Alcohol abuse, uncomplicated; R16.1 Splenomegaly, not elsewhere classified; D64.9 Anemia, unspecified; Z88.2 Allergy status to sulfonamides; Z91.048 Other nonmedicinal substance allergy status; Z79.899 Other long term (current) drug therapy; Z79.52 Long term (current) use of systemic steroids; Z97.5 Presence of (intrauterine) contraceptive device; Z86.718 Personal history of other venous thrombosis and embolism
CPT/HCPCS: 74177; 80048; 80076; 83690; 84703; 85025; 87507; 96374; 99284; J1885; J2405; Q9963; Q9967

== ENCOUNTER → 2023-09-17 | Outpatient (CLI) | payer OTHER ==
[~2023-09-17] MED LIST changes: +BUPR-597; +ERGO500029; +FERR325T3 PO; +TOPI-21
[2023-09-17 15:23] LABS: C REACTIVE PROTEIN QUANTITATIV 3.3 MG/DL (<1.0)
[2023-09-17 15:25] LABS: ALBUMIN 3.4 G/DL (3.2-5.2); BILIRUBIN,DIRECT 0.1 MG/DL (<0.4); BILIRUBIN,TOTAL 0.5 MG/DL (0.3-1.2); TOTAL PROTEIN 6.6 G/DL (5.7-8.2)
[2023-09-17 15:26] LABS: THYROID STIMULATING HORMONE 3.835 uIU/ML (0.55-4.78)
[2023-09-17 15:27] LABS: TOTAL 25(OH) VITAMIN D 25.9 NG/ML (20.0-100.0)
== END ==
LOC: M LAB 12:27
PROVIDERS: ATTEND Registered Nurse
DX: K50.80 Crohn's disease of both small and large intestine without complications (principal); D50.9 Iron deficiency anemia, unspecified

== ENCOUNTER → 2023-09-17 | Outpatient (CLI) | payer OTHER ==
[2023-09-17 14:01] LABS: BASO # 0.1 10^3/uL (0.0-0.2); BASO % 1.2 % (0.0-1.0); EOS # 0.2 10^3/uL (0.0-0.5); EOS % 2.7 % (0.0-3.0); HEMATOCRIT 28.7 % (36.0-47.0); HEMOGLOBIN 7.7 g/dl (12.0-15.5); LYMPH # 1.3 10^3/uL (1.5-5.0); LYMPH % 18.1 % (24.0-44.0); MEAN CORPUSCULAR HEMOGLOBIN 17.7 pg (27.0-33.0); MEAN CORPUSCULAR HGB CONC 26.8 g/dl (32.0-36.5); MEAN CORPUSCULAR VOLUME 66.1 fl (80.0-96.0); MONO # 0.5 10^3/uL (0.0-0.8); MONO % 6.8 % (2.0-8.0); NEUTROPHILS # 4.9 10^3/uL (1.5-8.5); NEUTROPHILS % 70.9 % (36.0-66.0); PLATELET COUNT, AUTOMATED 275 10^3/uL (150-450); RED BLOOD COUNT 4.34 10^6/uL (4.00-5.40)
[2023-09-17 14:17] LABS: ALBUMIN 3.4 G/DL (3.2-5.2); ALKALINE PHOSPHATASE 100 U/L (46-116); ALT/SGPT 24 U/L (7.0-40); AST/SGOT 10 U/L (<34); BILIRUBIN,TOTAL 0.5 MG/DL (0.3-1.2); BLOOD UREA NITROGEN 10 MG/DL (9-23); CARBON DIOXIDE LEVEL 25 MMOL/L (20-31); CHLORIDE LEVEL 105 MMOL/L (98-107); CREATININE FOR GFR 0.67 MG/DL (0.55-1.30); GLOMERULAR FILTRATION RATE > 60.0 (>60); GLUCOSE, FASTING 75 MG/DL (60-100); IRON (FE) 99 UG/DL (50-170); PERCENT SATURATION 26.2 % (13.2-45.0); POTASSIUM SERUM 4.2 MMOL/L (3.5-5.1); SODIUM LEVEL 138 MMOL/L (136-145); TOTAL IRON BINDING CAPACITY 378 UG/DL (250-425); TOTAL PROTEIN 6.6 G/DL (5.7-8.2)
[2023-09-17 14:19] LABS: FERRITIN 3.2 NG/ML (7.3-270.7); FREE T4 0.88 NG/DL (0.89-1.76); THYROID STIMULATING HORMONE 3.739 uIU/ML (0.55-4.78)
[2023-09-17 16:24] LABS: THYROID PEROXIDASE ANTIBODY 40 U/ML (<60.0)
[2023-09-18 15:06] LABS: THRYOGLOBULIN ANTIBODIES (ATA) < 1 IU/mL (< or = 1)
== END ==
LOC: M LAB 12:23
PROVIDERS: ATTEND Physician Assistant
DX: R13.19 Other dysphagia (principal); K21.9 Gastro-esophageal reflux disease without esophagitis

== ENCOUNTER 2023-10-16 12:56 | Outpatient (CLI) | payer OTHER ==
[~2023-10-16] VITALS: Ht 170.2 cm; Wt 135.0 kg
[2023-10-16 13:10] VITALS: BP 131/58; O2SAT 100
[2023-10-16 13:39] VITALS: BP 99/62; O2SAT 96
[2023-10-16] MEDS: FERRIC CARBOXYMALTOSE INJ 750 MG in NS 250 ML (>50kg) IV ONE (13:41)
[2023-10-16 15:00] VITALS: BP 140/74; O2SAT 100
== END 2023-10-16 15:00 ==
LOC: M INFU 12:56
PROVIDERS: ATTEND Family Medicine
DX: D50.9 Iron deficiency anemia, unspecified (principal); Z88.2 Allergy status to sulfonamides; Z91.048 Other nonmedicinal substance allergy status
CPT/HCPCS: 96365; J1439

== ENCOUNTER 2023-10-27 13:25 | Outpatient (CLI) | payer OTHER ==
[~2023-10-27] VITALS: Ht 170.2 cm; Wt 135.4 kg
[2023-10-27 13:25] VITALS: BP 136/87; O2SAT 98
[2023-10-27] MEDS: FERRIC CARBOXYMALTOSE INJ 750 MG in NS 250 ML (>50kg) IV ONE (13:37)
[2023-10-27 15:00] VITALS: BP 137/95; O2SAT 97
== END 2023-10-27 15:00 ==
LOC: M INFU 13:25
PROVIDERS: ATTEND Family Medicine
DX: D50.9 Iron deficiency anemia, unspecified (principal); Z88.2 Allergy status to sulfonamides; Z91.048 Other nonmedicinal substance allergy status
CPT/HCPCS: 96365; J1439

== ENCOUNTER → 2023-11-04 | Outpatient (REF) | payer OTHER ==
[2023-11-04 17:52] LABS: BASO # 0.1 10^3/uL (0.0-0.2); BASO % 0.9 % (0.0-1.0); EOS # 0.3 10^3/uL (0.0-0.5); EOS % 3.9 % (0.0-3.0); HEMATOCRIT 36.6 % (36.0-47.0); HEMOGLOBIN 10.7 g/dl (12.0-15.5); LYMPH # 1.6 10^3/uL (1.5-5.0); LYMPH % 18.6 % (24.0-44.0); MEAN CORPUSCULAR HEMOGLOBIN 23.1 pg (27.0-33.0); MEAN CORPUSCULAR HGB CONC 29.2 g/dl (32.0-36.5); MONO # 0.6 10^3/uL (0.0-0.8); MONO % 6.9 % (2.0-8.0); NEUTROPHILS % 69.5 % (36.0-66.0); PLATELET COUNT, AUTOMATED 309 10^3/uL (150-450); RED BLOOD COUNT 4.63 10^6/uL (4.00-5.40); WHITE BLOOD COUNT 8.7 10^3/uL (4.0-10.0)
[2023-11-04 18:24] LABS: TOTAL IRON BINDING CAPACITY 317 UG/DL (250-425)
[2023-11-04 18:26] LABS: ERYTHROCYTE SEDIMENTATION RATE 20 mm/hr (0-20)
[2023-11-04 18:27] LABS: ALBUMIN 3.5 G/DL (3.2-5.2); ALKALINE PHOSPHATASE 93 U/L (46-116); ALT/SGPT 41 U/L (7.0-40); AST/SGOT 21 U/L (<34); BILIRUBIN,TOTAL 0.3 MG/DL (0.3-1.2); BLOOD UREA NITROGEN 12 MG/DL (9-23); CALCIUM LEVEL 8.9 MG/DL (8.5-10.1); CARBON DIOXIDE LEVEL 30 MMOL/L (20-31); CHLORIDE LEVEL 104 MMOL/L (98-107); CREATININE FOR GFR 0.71 MG/DL (0.55-1.30); FERRITIN 132.1 NG/ML (7.3-270.7); GLOMERULAR FILTRATION RATE > 60.0 (>60); GLUCOSE, FASTING 77 MG/DL (60-100); IRON (FE) 51 UG/DL (50-170); PERCENT SATURATION 16.1 % (13.2-45.0); POTASSIUM SERUM 4.3 MMOL/L (3.5-5.1); SODIUM LEVEL 138 MMOL/L (136-145); TOTAL PROTEIN 6.6 G/DL (5.7-8.2)
== END ==
LOC: M SFHCPLAZ 17:24
PROVIDERS: ATTEND Physician Assistant
DX: D50.9 Iron deficiency anemia, unspecified (principal)

== ENCOUNTER → 2024-01-21 | Outpatient (CLI) | payer OTHER ==
[2024-01-21 11:34] LABS: BASO # 0.1 10^3/uL (0.0-0.2); BASO % 0.7 % (0.0-1.0); EOS % 0.6 % (0.0-3.0); HEMATOCRIT 35.3 % (36.0-47.0); HEMOGLOBIN 10.7 g/dl (12.0-15.5); LYMPH # 1.2 10^3/uL (1.5-5.0); LYMPH % 17.3 % (24.0-44.0); MEAN CORPUSCULAR HEMOGLOBIN 23.8 pg (27.0-33.0); MEAN CORPUSCULAR HGB CONC 30.3 g/dl (32.0-36.5); MEAN CORPUSCULAR VOLUME 78.4 fl (80.0-96.0); MONO # 0.4 10^3/uL (0.0-0.8); MONO % 5.9 % (2.0-8.0); NEUTROPHILS # 5.3 10^3/uL (1.5-8.5); NEUTROPHILS % 75.1 % (36.0-66.0); PLATELET COUNT, AUTOMATED 359 10^3/uL (150-450); WHITE BLOOD COUNT 7.1 10^3/uL (4.0-10.0)
[2024-01-21 12:06] LABS: FERRITIN 3.7 NG/ML (7.3-270.7); PERCENT SATURATION 6.7 % (13.2-45.0)
== END ==
LOC: M LRY 08:42
PROVIDERS: ATTEND Physician Assistant
DX: D50.9 Iron deficiency anemia, unspecified (principal)

== ENCOUNTER → 2024-01-21 | Outpatient (CLI) | payer OTHER ==
[2024-01-23 13:47] LABS: QuantiFERON-TB Gold Plus NEGATIVE (NEGATIVE)
== END ==
LOC: M LRY 08:41
PROVIDERS: ATTEND Registered Nurse
DX: D50.9 Iron deficiency anemia, unspecified (principal)

== ENCOUNTER 2024-03-31 14:31 | Outpatient (CLI) | payer OTHER ==
[~2024-03-31] VITALS: Ht 170.2 cm; Wt 136.0 kg
[2024-03-31 14:45] VITALS: BP 121/75; O2SAT 100
[2024-03-31] MEDS: RISANKIZUMAB-RZAA 600 MG in D5W 250 ML IV ONE (15:43)
[2024-03-31 17:15] VITALS: BP 134/81; O2SAT 100
== END 2024-03-31 17:50 ==
LOC: M INFU 14:31
PROVIDERS: ATTEND Student in an Organized Health Care Education/Training Program
DX: K50.80 Crohn's disease of both small and large intestine without complications (principal); Z88.2 Allergy status to sulfonamides; Z91.048 Other nonmedicinal substance allergy status
CPT/HCPCS: 96365; J2327

== ENCOUNTER 2024-04-29 14:00 | Outpatient (CLI) | payer OTHER ==
[~2024-04-29] VITALS: Ht 170.2 cm; Wt 134.0 kg
[2024-04-29 14:00] VITALS: BP 118/73; O2SAT 98
[2024-04-29] MEDS: RISANKIZUMAB-RZAA 600 MG in D5W 250 ML IV ONE (14:25)
[2024-04-29 15:33] VITALS: BP 115/70; O2SAT 100
== END 2024-04-29 15:35 ==
LOC: M INFU 14:00
PROVIDERS: ATTEND Student in an Organized Health Care Education/Training Program
DX: K50.90 Crohn's disease, unspecified, without complications (principal); Z88.2 Allergy status to sulfonamides; Z91.048 Other nonmedicinal substance allergy status
CPT/HCPCS: 96365; J2327

== ENCOUNTER 2024-05-27 14:19 | Outpatient (CLI) | payer OTHER ==
[~2024-05-27] VITALS: Ht 170.2 cm; Wt 139.0 kg
[2024-05-27 14:30] VITALS: BP 136/83; O2SAT 99
[2024-05-27] MEDS: RISANKIZUMAB-RZAA 600 MG in D5W 250 ML IV ONE (14:55)
[2024-05-27 16:00] VITALS: BP 128/79; O2SAT 100
== END 2024-05-27 16:09 ==
LOC: M INFU 14:19
PROVIDERS: ATTEND Student in an Organized Health Care Education/Training Program
DX: K50.90 Crohn's disease, unspecified, without complications (principal); Z88.2 Allergy status to sulfonamides; Z91.048 Other nonmedicinal substance allergy status
CPT/HCPCS: 96365; J2327

== ENCOUNTER → 2024-09-17 | Outpatient (CLI) | payer OTHER ==
[~2024-09-17] MED LIST changes: -BUPR-597; +BUPR-766
== END ==
LOC: M RAD 12:31
PROVIDERS: ATTEND Registered Nurse
DX: R19.4 Change in bowel habit (principal); M25.50 Pain in unspecified joint; Z97.5 Presence of (intrauterine) contraceptive device

== ENCOUNTER → 2024-09-30 | Outpatient (CLI) | payer OTHER ==
[2024-09-30 13:53] LABS: BASO # 0.1 10^3/uL (0.0-0.2); BASO % 0.8 % (0.0-1.0); EOS # 0.6 10^3/uL (0.0-0.5); EOS % 7.3 % (0.0-3.0); LYMPH # 1.4 10^3/uL (1.5-5.0); LYMPH % 18.2 % (24.0-44.0); MONO # 0.3 10^3/uL (0.0-0.8); MONO % 4.3 % (2.0-8.0); NEUTROPHILS # 5.4 10^3/uL (1.5-8.5); NEUTROPHILS % 69.1 % (36.0-66.0); PLATELET COUNT, AUTOMATED 312 10^3/uL (150-450)
[2024-09-30 14:01] LABS: ERYTHROCYTE SEDIMENTATION RATE 25 mm/hr (0-20)
[2024-09-30 14:28] LABS: C REACTIVE PROTEIN QUANTITATIV 2.17 MG/DL (<1.0)
[2024-09-30 15:20] LABS: RHEUMATOID FACTOR QUANT < 3.5 IU/ML (<14)
== END ==
LOC: M LAB 13:09
PROVIDERS: ATTEND Student in an Organized Health Care Education/Training Program
DX: K50.80 Crohn's disease of both small and large intestine without complications (principal); M25.50 Pain in unspecified joint; R68.89 Other general symptoms and signs

== ENCOUNTER → 2024-10-11 | Outpatient (CLI) | payer OTHER ==
[~2024-10-11] MED LIST changes: +ISOVUE-370 76% 100 ML VIAL As Ordered ONE
== END ==
LOC: M RAD 14:04
PROVIDERS: ATTEND Student in an Organized Health Care Education/Training Program
DX: K50.80 Crohn's disease of both small and large intestine without complications (principal); K43.9 Ventral hernia without obstruction or gangrene; R59.0 Localized enlarged lymph nodes; N83.202 Unspecified ovarian cyst, left side
CPT/HCPCS: 74177; Q9967

== ENCOUNTER 2024-10-13 14:13 | Outpatient (CLI) | payer OTHER ==
[~2024-10-13] VITALS: Ht 170.2 cm; Wt 133.2 kg
[~2024-10-13 14:13] MED LIST changes: +ALBUTEROL SULFATE 2.5 MG/0.5 ML INH CONCENTRATE NEB SOLN INH PRN; +EPINEPHrine INJ 1 MG/ML 1ML AMP IM PRN; -ISOVUE-370 76% 100 ML VIAL As Ordered ONE; +diphenhydrAMINE 50 MG/ML VIAL IV PRN
[2024-10-13 14:20] VITALS: BP 125/75; O2SAT 100
[2024-10-13] MEDS: FERRIC CARBOXYMALTOSE 750 MG (VIAL MATE) IN 100ML NS IV ONE (14:39)
== END 2024-10-13 15:10 ==
LOC: M INFU 14:13
PROVIDERS: ATTEND Physician Assistant
DX: D50.9 Iron deficiency anemia, unspecified (principal); Z88.2 Allergy status to sulfonamides; Z91.048 Other nonmedicinal substance allergy status
CPT/HCPCS: 96365; J1439

== ENCOUNTER → 2024-11-02 | Outpatient (CLI) | payer OTHER ==
[~2024-11-02] MED LIST changes: -ALBUTEROL SULFATE 2.5 MG/0.5 ML INH CONCENTRATE NEB SOLN INH PRN; -EPINEPHrine INJ 1 MG/ML 1ML AMP IM PRN; -IBUP-1022 PO; +IBUP600T42 PO; +MIREIUD VG; +PANT40TA29 PO; +RISA150S2 SQ; -diphenhydrAMINE 50 MG/ML VIAL IV PRN
[2024-11-02 14:38] LABS: BASO # 0.1 10^3/uL (0.0-0.2); BASO % 1.0 % (0.0-1.0); EOS # 0.6 10^3/uL (0.0-0.5); EOS % 7.3 % (0.0-3.0); LYMPH # 1.8 10^3/uL (1.5-5.0); LYMPH % 22.3 % (24.0-44.0); MONO # 0.5 10^3/uL (0.0-0.8); MONO % 6.6 % (2.0-8.0); NEUTROPHILS # 4.9 10^3/uL (1.5-8.5); NEUTROPHILS % 62.5 % (36.0-66.0); PLATELET COUNT, AUTOMATED 317 10^3/uL (150-450)
[2024-11-02 14:54] LABS: C REACTIVE PROTEIN QUANTITATIV 1.44 MG/DL (<1.0); CALCIUM LEVEL 8.9 MG/DL (8.5-10.1); CARBON DIOXIDE LEVEL 27 MMOL/L (20-31); CHLORIDE LEVEL 107 MMOL/L (98-107); CREATININE FOR GFR 0.73 MG/DL (0.55-1.30); GLOMERULAR FILTRATION RATE > 90.0 (>60); IRON (FE) 36 UG/DL (50-170); PERCENT SATURATION 11.4 % (13.2-45.0); POTASSIUM SERUM 4.6 MMOL/L (3.5-5.1); SODIUM LEVEL 140 MMOL/L (136-145)
[2024-11-02 19:15] LABS: PLATELET ESTIMATE NORMAL (NORMAL)
== END ==
LOC: M LAB 13:12
PROVIDERS: ATTEND Physician Assistant
DX: D50.9 Iron deficiency anemia, unspecified (principal); K50.811 Crohn's disease of both small and large intestine with rectal bleeding; R19.4 Change in bowel habit; M25.50 Pain in unspecified joint

== ENCOUNTER → 2024-11-02 | Outpatient (CLI) | payer OTHER | LOC: M LAB 13:09 | PROVIDERS: ATTEND Student in an Organized Health Care Education/Training Program | DX: M25.50 Pain in unspecified joint (principal); R19.4 Change in bowel habit ==